=== PATIENT | male | born 1970 | race Caucasian/White ===

== ENCOUNTER 2017-11-06 04:41 | Inpatient (IN) | payer OTHER ==
[~2017-11-06] VITALS: Ht 182.9 cm; Wt 108.6 kg
[2017-11-06] MEDS ORDERED: morphine 4 MG/ML inj SYRINge IV ONE (04:55)
[2017-11-06] MEDS ORDERED: ondansetron/PF 4mg/2ml inj IV ONE (04:55)
[2017-11-06] MEDS ORDERED: normal saline 1000ML IV soln IVB ONE (04:55)
[2017-11-06] MEDS ORDERED: iohexol 300mg/ml 100ml inj. ONE (05:04)
[2017-11-06 05:27] LABS: BASOPHILS % (AUTO) 0.2 % (0-1); EOSINOPHILS # (AUTO) 0.4 X10'3 (0-0.9); EOSINOPHILS % (AUTO) 4.5 % (0-6); HEMATOCRIT 41.4 % (42.0-52.0); HEMOGLOBIN 14.4 g/dl (14.0-17.9); LYMPHOCYTES # (AUTO) 1.4 X10'3 (1.1-4.8); LYMPHOCYTES % (AUTO) 13.7 % (21-51); MEAN CORPUSCULAR HEMOGLOBIN 30.8 PG (27.0-31.0); MEAN CORPUSCULAR HGB CONC 34.8 % (33.0-36.5); MEAN CORPUSCULAR VOLUME 88.3 FL (78-98); MEAN PLATELET VOLUME 8.8 FL (7.4-10.4); MONOCYTES # (AUTO) 0.7 X10'3 (0-0.9); MONOCYTES % (AUTO) 6.6 % (2-12); NEUTROPHILS # (AUTO) 7.5 X10'3 (1.8-7.7); PLATELET COUNT 191 X10'3 (140-440); RED BLOOD COUNT 4.69 X10'6 (4.70-6.10); RED CELL DISTRIBUTION WIDTH 14.6 % (11.5-14.5)
[2017-11-06 05:35] LABS: ALANINE AMINOTRANSFERASE 121 U/L (12-78); ALBUMIN 3.5 G/DL (3.4-5.0); ALKALINE PHOSPHATASE 80 IU/L (46-116); ANION GAP 5 (8-16); ASPARTATE AMINO TRANSFERASE 52 U/L (10-37); BILIRUBIN,TOTAL 1.5 MG/DL (0.1-1.0); BLOOD UREA NITROGEN 16 MG/DL (7-18); BUN/CREATININE RATIO 11.9 (5.4-32.0); CALCIUM 8.5 MG/DL (8.5-10.1); CHLORIDE 102 MMOL/L (99-107); CREATININE 1.34 MG/DL (0.60-1.10); GLUCOSE 131 MG/DL (70-104); LIPASE 78 U/L (73-393); SODIUM 139 MMOL/L (135-145); TOTAL PROTEIN 6.9 G/DL (6.4-8.2); eGFR 57 ML/MIN
[2017-11-06 05:39] LABS: POTASSIUM 2.5 MMOL/L (3.5-5.1)
[2017-11-06] MEDS ORDERED: potassium Cl 20 mEq SR tablet PO STA (05:39)
[2017-11-06] MEDS ORDERED: Potassium Cl inj 20 MEQ in dextrose 5%-water 990 ML IV ONE (06:45)
[2017-11-06] MEDS ORDERED: aspirin 81mg tab.chew PO ONE (08:20)
[2017-11-06] MEDS: potassium 10mEq/100ml NS w/LIDOcaine (10mg/bag) IV SCH ×2 (08:28→09:42)
[2017-11-06] MEDS ORDERED: heparin 10,000 units/1 ML INJ IV PRN (08:35)
[2017-11-06] MEDS ORDERED: heparin 10,000 units/1 ML INJ IV ONE ×2 (08:35)
[2017-11-06] MEDS ORDERED: magnesium 4gm in 100ml NS 100 ML IV PRN (09:00)
[2017-11-06] MEDS ORDERED: potassium Cl 20 mEq SR tablet PO PRN (09:00)
[2017-11-06] MEDS ORDERED: potassium Cl 40MEQ/NS 500ml 500 ML IV PRN (09:00)
[2017-11-06] MEDS ORDERED: mag hydrox/Alum hydrox/simeth 30ml oral suspension PO PRN (09:00)
[2017-11-06] MEDS ORDERED: morphine 4 MG/ML inj SYRINge IV PRN (09:00)
[2017-11-06] MEDS ORDERED: acetaminophen 325mg tablet PO PRN (09:00)
[2017-11-06] MEDS ORDERED: ondansetron/PF 4mg/2ml inj IV PRN (09:00)
[2017-11-06] MEDS ORDERED: magnesium 1gm/100ml D5W IVPB 50 ML IV PRN (09:00)
[2017-11-06] MEDS ORDERED: magnesium Cl slow-release 64mg tablet PO PRN (09:00)
[2017-11-06] MEDS: normal saline 1000ml 1,000 ML IV SCH ×2 (09:47→19:23)
[2017-11-06 10:17] LABS: CLARITY,URINE CLEAR (Clear); GLUCOSE, URINE NEGATIVE (Neg); KETONES,URINE NEGATIVE (Neg); LEUKOCYTE ESTERASE ,URINE NEGATIVE (Neg); NITRITES, URINE NEGATIVE (Neg); OCCULT BLOOD,URINE TRACE-INTACT (Neg); PH,URINE 6.5 (4.8-8.0); PROTEIN,URINE TRACE mg/dl (Neg); UA COLLECTION TYPE CLN CATCH MIDSTREAM; UROBILINOGEN,URINE 0.2 E.U/dL (0.2-1.0)
[2017-11-06 10:18] LABS: COLOR,URINE DARK YELLOW (Yellow)
[2017-11-06 10:25] LABS: BACTERIA,URINE NONE SEEN /HPF (Neg); MUCUS STRANDS NONE SEEN /LPF (Neg); RBC,URINE 0-2 /HPF (0-2); SQUAMOUS EPITHELIAL CELL,UR NONE SEEN /LPF (FEW); WBC,URINE 0-4 /HPF (0-4)
[2017-11-06 10:30] LABS: URINE AMPHETAMINE SCREEN NEGATIVE (Neg); URINE BARBITUATE SCREEN NEGATIVE (Neg); URINE BENZODIAZEPINES SCREEN NEGATIVE (Neg); URINE CANNABINOID SCREEN NEGATIVE (Neg); URINE COCAINE SCREEN NEGATIVE (Neg); URINE METHADONE SCREEN NEGATIVE (Neg); URINE OPIATE SCREEN POSITIVE (Neg); URINE PHENCYCLIDINE SCREEN NEGATIVE (Neg)
[2017-11-06] MEDS ORDERED: POTA20TA19 PO (11:48)
[2017-11-06] MEDS ORDERED: RISP2TAB97 PO (11:48)
[2017-11-06] MEDS ORDERED: LOSA1TAB36 PO (11:48)
[2017-11-06] MEDS ORDERED: TRAZ150T78 PO (11:48)
[2017-11-06] MEDS ORDERED: VENL75CA61 PO (11:48)
[2017-11-06 12:21] VITALS: BP 122/89
[2017-11-06 19:00] VITALS: BP 138/99
[2017-11-06] MEDS: carVEDilol 3.125mg tablet PO SCH (19:26)
[2017-11-06] MEDS: spironolactone 25 MG tablet PO SCH (19:26)
[2017-11-06] MEDS: losartan 50mg tablet PO SCH (19:26)
[2017-11-06] MEDS: docusate sod 100mg capsule PO SCH (19:26)
[2017-11-06] MEDS ORDERED: temazepam 15mg capsule PO PRN (21:00)
[2017-11-06] MEDS: potassium Cl 40MEQ/NS 500ml 500 ML IV PRN (21:04)
[2017-11-07] VITALS: BP 102/75
[2017-11-07] MEDS: potassium Cl 40MEQ/NS 500ml 500 ML IV PRN (01:58)
[2017-11-07] MEDS: normal saline 1000ml 1,000 ML IV SCH (04:57)
[2017-11-07 05:02] LABS: BASOPHILS % (AUTO) 0.1 % (0-1); EOSINOPHILS # (AUTO) 0.8 X10'3 (0-0.9); EOSINOPHILS % (AUTO) 8.1 % (0-6); HEMATOCRIT 40.2 % (42.0-52.0); HEMOGLOBIN 13.6 g/dl (14.0-17.9); LYMPHOCYTES # (AUTO) 1.6 X10'3 (1.1-4.8); LYMPHOCYTES % (AUTO) 15.3 % (21-51); MEAN CORPUSCULAR HEMOGLOBIN 30.4 PG (27.0-31.0); MEAN CORPUSCULAR HGB CONC 33.8 % (33.0-36.5); MEAN CORPUSCULAR VOLUME 89.8 FL (78-98); MEAN PLATELET VOLUME 8.7 FL (7.4-10.4); MONOCYTES # (AUTO) 0.8 X10'3 (0-0.9); NEUTROPHILS % (AUTO) 68.5 % (42-75); PLATELET COUNT 163 X10'3 (140-440); RED BLOOD COUNT 4.47 X10'6 (4.70-6.10); RED CELL DISTRIBUTION WIDTH 15.1 % (11.5-14.5); WHITE BLOOD COUNT 10.2 X10'3 (4.5-11.0)
[2017-11-07 06:03] LABS: ANION GAP 8 (8-16); BLOOD UREA NITROGEN 16 MG/DL (7-18); BUN/CREATININE RATIO 14.2 (5.4-32.0); CALCIUM 7.7 MG/DL (8.5-10.1); CHLORIDE 106 MMOL/L (99-107); CREATININE 1.13 MG/DL (0.60-1.10); GLUCOSE 130 MG/DL (70-104); POTASSIUM 3.8 MMOL/L (3.5-5.1); SODIUM 142 MMOL/L (135-145); TOTAL CARBON DIOXIDE 28.2 MMOL/L (24-32); eGFR 69 ML/MIN
[2017-11-07 07:00] VITALS: BP 147/96
[2017-11-07] MEDS: K and/or MAG REPLACEMENT MC SCH (08:00)
[2017-11-07] MEDS: losartan 50mg tablet PO SCH ×2 (08:24→20:54)
[2017-11-07] MEDS: spironolactone 25 MG tablet PO SCH ×2 (08:24→20:54)
[2017-11-07] MEDS: docusate sod 100mg capsule PO SCH ×2 (08:24→20:54)
[2017-11-07] MEDS: carVEDilol 3.125mg tablet PO SCH ×2 (08:24→20:54)
[2017-11-07] MEDS ORDERED: ipratropium/albuterol 3ml nebule NEB PRN (11:40)
[2017-11-07 12:23] VITALS: BP 123/86
[2017-11-07] MEDS ORDERED: furosemide 10 MG/1 ML 10ml inj IV ONE (13:25)
[2017-11-07] MEDS ORDERED: LORazepam 1 MG tablet PO PRN (16:45)
[2017-11-07] MEDS ORDERED: LORazepam 2 mg/ml vial IV PRN (16:45)
[2017-11-07] MEDS ORDERED: haloperidol lactate 5mg/ml inj IM PRN (16:45)
[2017-11-07 18:40] VITALS: BP 136/97
[2017-11-07] MEDS: furosemide 40mg/4ml inj IV SCH (20:53)
[2017-11-07] MEDS: risperiDONE 2mg tablet PO SCH (20:54)
[2017-11-07] MEDS: traZODone 150mg tablet PO SCH (20:54)
[2017-11-07] MEDS: heparin, porcine 5000 units/ml vial SQ SCH (20:55)
[2017-11-08] VITALS (12 sets, daily range): BP systolic 81–135; BP diastolic 55–99
[2017-11-08 05:19] LABS: BASOPHILS % (AUTO) 0.4 % (0-1); EOSINOPHILS # (AUTO) 0.7 X10'3 (0-0.9); EOSINOPHILS % (AUTO) 7.5 % (0-6); HEMATOCRIT 35.4 % (42.0-52.0); HEMOGLOBIN 12.3 g/dl (14.0-17.9); LYMPHOCYTES # (AUTO) 1.5 X10'3 (1.1-4.8); LYMPHOCYTES % (AUTO) 16.4 % (21-51); MEAN CORPUSCULAR HEMOGLOBIN 30.7 PG (27.0-31.0); MEAN CORPUSCULAR HGB CONC 34.6 % (33.0-36.5); MEAN CORPUSCULAR VOLUME 88.8 FL (78-98); MEAN PLATELET VOLUME 9.3 FL (7.4-10.4); MONOCYTES # (AUTO) 0.7 X10'3 (0-0.9); MONOCYTES % (AUTO) 7.8 % (2-12); NEUTROPHILS # (AUTO) 6.2 X10'3 (1.8-7.7); NEUTROPHILS % (AUTO) 67.9 % (42-75); PLATELET COUNT 154 X10'3 (140-440); RED BLOOD COUNT 3.99 X10'6 (4.70-6.10); RED CELL DISTRIBUTION WIDTH 14.8 % (11.5-14.5); WHITE BLOOD COUNT 9.2 X10'3 (4.5-11.0)
[2017-11-08 05:37] LABS: ALANINE AMINOTRANSFERASE 116 U/L (12-78); ALBUMIN 2.9 G/DL (3.4-5.0); ALBUMIN/GLOBULIN RATIO 0.9 (1.1-1.5); ALKALINE PHOSPHATASE 71 IU/L (46-116); ANION GAP 8 (8-16); ASPARTATE AMINO TRANSFERASE 40 U/L (10-37); BILIRUBIN,TOTAL 1.1 MG/DL (0.1-1.0); BLOOD UREA NITROGEN 18 MG/DL (7-18); BUN/CREATININE RATIO 13.5 (5.4-32.0); CALCIUM 7.7 MG/DL (8.5-10.1); CHLORIDE 104 MMOL/L (99-107); CREATININE 1.33 MG/DL (0.60-1.10); GLUCOSE 116 MG/DL (70-104); MAGNESIUM 1.6 MG/DL (1.5-2.4); SODIUM 143 MMOL/L (135-145); TOTAL CARBON DIOXIDE 30.9 MMOL/L (24-32); TOTAL PROTEIN 6.2 G/DL (6.4-8.2); TROPONIN I 0.07 NG/ML (0.0-0.05); eGFR 57 ML/MIN
[2017-11-08 05:42] LABS: POTASSIUM 2.6 MMOL/L (3.5-5.1)
[2017-11-08] MEDS: potassium Cl 20 mEq SR tablet PO PRN ×3 (05:46→14:16)
[2017-11-08] MEDS: furosemide 40mg/4ml inj IV SCH (08:00)
[2017-11-08] MEDS: K and/or MAG REPLACEMENT MC SCH (08:00)
[2017-11-08] MEDS ORDERED: HYDROchlorothiazide 12.5mg capsule PO SCH (08:00)
[2017-11-08] MEDS ORDERED: losartan 50mg tablet PO SCH (08:00)
[2017-11-08] MEDS: folic acid 1mg tablet PO SCH (08:38)
[2017-11-08] MEDS: multivitamins, therapeutics tablet PO SCH (08:39)
[2017-11-08] MEDS: thiamine 100mg tablet PO SCH (08:39)
[2017-11-08] MEDS: docusate sod 100mg capsule PO SCH ×2 (08:40→19:50)
[2017-11-08] MEDS: carVEDilol 3.125mg tablet PO SCH ×2 (08:40→19:54)
[2017-11-08] MEDS: losartan 50mg tablet PO SCH ×2 (08:40→19:51)
[2017-11-08] MEDS: risperiDONE 2mg tablet PO SCH ×2 (08:41→19:56)
[2017-11-08] MEDS: spironolactone 25 MG tablet PO SCH ×2 (08:41→19:50)
[2017-11-08] MEDS: heparin, porcine 5000 units/ml vial SQ SCH (08:42)
[2017-11-08] MEDS ORDERED: methylPREDNISolone sod succ 125mg/2ml vial IV ONE (12:20)
[2017-11-08] MEDS ORDERED: heparin 10,000 units/1 ML INJ IV ONE (13:20)
[2017-11-08] MEDS ORDERED: amiodarone 150mg/dext, iso-os 100 ML IV ONE (13:20)
[2017-11-08] MEDS ORDERED: magnesium 4gm in 100ml NS 100 ML IV ONE (13:30)
[2017-11-08] MEDS ORDERED: magnesium 1gm/100ml D5W IVPB 100 ML IV PRN (13:30)
[2017-11-08 13:50] LABS: BASOPHILS % (AUTO) 0.3 % (0-1); EOSINOPHILS # (AUTO) 0.7 X10'3 (0-0.9); EOSINOPHILS % (AUTO) 10.5 % (0-6); HEMATOCRIT 35.9 % (42.0-52.0); HEMOGLOBIN 12.5 g/dl (14.0-17.9); LYMPHOCYTES # (AUTO) 1.3 X10'3 (1.1-4.8); LYMPHOCYTES % (AUTO) 19.4 % (21-51); MEAN CORPUSCULAR HGB CONC 34.7 % (33.0-36.5); MEAN CORPUSCULAR VOLUME 89.2 FL (78-98); MEAN PLATELET VOLUME 8.9 FL (7.4-10.4); MONOCYTES # (AUTO) 0.5 X10'3 (0-0.9); MONOCYTES % (AUTO) 7.4 % (2-12); NEUTROPHILS # (AUTO) 4.1 X10'3 (1.8-7.7); NEUTROPHILS % (AUTO) 62.4 % (42-75); PLATELET COUNT 150 X10'3 (140-440); RED BLOOD COUNT 4.02 X10'6 (4.70-6.10); RED CELL DISTRIBUTION WIDTH 14.9 % (11.5-14.5); WHITE BLOOD COUNT 6.6 X10'3 (4.5-11.0)
[2017-11-08 14:01] LABS: INR 1.1 INR; PARTIAL THROMBOPLASTIN TIME 29 SECONDS (22-32); PROTHROMBIN TIME 11.1 SECONDS (9.0-12.0)
[2017-11-08] MEDS ORDERED: ipratropium/albuterol 3ml nebule ONE (14:43)
[2017-11-08] MEDS ORDERED: iohexol 350MG/ML 100ml bottle IV ONE (15:01)
[2017-11-08] MEDS: amiodarone/D5 360MG/200ML BAG 200 ML IV SCH ×2 (15:08→20:43)
[2017-11-08] MEDS: potassium Cl 20 mEq SR tablet PO SCH (17:51)
[2017-11-08] MEDS: ipratropium/albuterol 3ml nebule NEB SCH ×2 (19:37→23:31)
[2017-11-08] MEDS: furosemide 20MG tablet PO SCH (19:52)
[2017-11-08] MEDS ORDERED: methylPREDNISolone sod succ 125mg/2ml vial IV SCH (20:00)
[2017-11-08 21:38] LABS: MAGNESIUM 2.6 MG/DL (1.5-2.4); POTASSIUM 4.1 MMOL/L (3.5-5.1)
[2017-11-08] MEDS: heparin 10,000 units/1 ML INJ IV PRN (22:03)
[2017-11-08] MEDS: traZODone 150mg tablet PO SCH (22:05)
[2017-11-09] VITALS (12 sets, daily range): BP systolic 115–139; BP diastolic 74–103
[2017-11-09] MEDS: amiodarone/D5 360MG/200ML BAG 200 ML IV SCH ×4 (01:26→19:38)
[2017-11-09 04:13] LABS: BASOPHILS % (AUTO) 0.1 % (0-1); EOSINOPHILS % (AUTO) 0.4 % (0-6); HEMATOCRIT 37.9 % (42.0-52.0); HEMOGLOBIN 13.1 g/dl (14.0-17.9); LYMPHOCYTES # (AUTO) 0.7 X10'3 (1.1-4.8); LYMPHOCYTES % (AUTO) 7.7 % (21-51); MEAN CORPUSCULAR HEMOGLOBIN 31.1 PG (27.0-31.0); MEAN CORPUSCULAR HGB CONC 34.5 % (33.0-36.5); MEAN CORPUSCULAR VOLUME 90.3 FL (78-98); MEAN PLATELET VOLUME 9.7 FL (7.4-10.4); MONOCYTES # (AUTO) 0.4 X10'3 (0-0.9); MONOCYTES % (AUTO) 4.1 % (2-12); NEUTROPHILS # (AUTO) 7.7 X10'3 (1.8-7.7); NEUTROPHILS % (AUTO) 87.7 % (42-75); PLATELET COUNT 163 X10'3 (140-440); RED BLOOD COUNT 4.19 X10'6 (4.70-6.10); WHITE BLOOD COUNT 8.8 X10'3 (4.5-11.0)
[2017-11-09 04:27] LABS: ALANINE AMINOTRANSFERASE 89 U/L (12-78); ALBUMIN 2.9 G/DL (3.4-5.0); ALBUMIN/GLOBULIN RATIO 0.7 (1.1-1.5); ALKALINE PHOSPHATASE 77 IU/L (46-116); ANION GAP 8 (8-16); ASPARTATE AMINO TRANSFERASE 22 U/L (10-37); BILIRUBIN,TOTAL 0.5 MG/DL (0.1-1.0); BLOOD UREA NITROGEN 26 MG/DL (7-18); BUN/CREATININE RATIO 18.8 (5.4-32.0); CALCIUM 8.8 MG/DL (8.5-10.1); CHLORIDE 104 MMOL/L (99-107); CREATININE 1.38 MG/DL (0.60-1.10); GLUCOSE 162 MG/DL (70-104); MAGNESIUM 2.4 MG/DL (1.5-2.4); POTASSIUM 3.9 MMOL/L (3.5-5.1); SODIUM 140 MMOL/L (135-145); TOTAL CARBON DIOXIDE 28.4 MMOL/L (24-32); eGFR 55 ML/MIN
[2017-11-09] MEDS: heparin 10,000 units/1 ML INJ IV PRN ×3 (04:46→19:55)
[2017-11-09] MEDS: docusate sod 100mg capsule PO SCH ×2 (08:00→19:53)
[2017-11-09] MEDS: K and/or MAG REPLACEMENT MC SCH (08:00)
[2017-11-09] MEDS: multivitamins, therapeutics tablet PO SCH (08:10)
[2017-11-09] MEDS: spironolactone 25 MG tablet PO SCH ×2 (08:11→19:53)
[2017-11-09] MEDS: losartan 50mg tablet PO SCH ×2 (08:11→19:54)
[2017-11-09] MEDS: thiamine 100mg tablet PO SCH (08:11)
[2017-11-09] MEDS: folic acid 1mg tablet PO SCH (08:11)
[2017-11-09] MEDS: furosemide 20MG tablet PO SCH ×2 (08:11→19:54)
[2017-11-09] MEDS: potassium Cl 20 mEq SR tablet PO SCH ×2 (08:12→17:27)
[2017-11-09] MEDS: carVEDilol 3.125mg tablet PO SCH ×2 (08:12→19:54)
[2017-11-09] MEDS: ipratropium/albuterol 3ml nebule NEB SCH ×4 (08:14→19:58)
[2017-11-09] MEDS: risperiDONE 2mg tablet PO SCH ×2 (09:00→19:54)
[2017-11-09] MEDS ORDERED: amiodarone 200mg tablet PO ONE (14:40)
[2017-11-09] MEDS ORDERED: furosemide 40mg/4ml inj IV ONE (17:20)
[2017-11-09] MEDS ORDERED: amiodarone 200mg tablet PO SCH (20:00)
[2017-11-09] MEDS: traZODone 150mg tablet PO SCH (21:10)
== END 2017-11-09 23:00 | disposition short-term general hospital (02) | DRG 280 ==
LOC: ER 04:42 → ED HOLD 08:57 → SUR 3N 11:28 → PCU 3S 11-08 14:38
PROVIDERS: ADMIT Internal Medicine; ATTEND Family Medicine
PROC: BW211ZZ Computerized Tomography (CT Scan) of Abdomen and Pelvis using Low Osmolar Contrast (ICD-10-PCS; principal; 2017-11-06)
DX: I21.A1 Myocardial infarction type 2 (principal); I50.23 Acute on chronic systolic (congestive) heart failure; I47.2 Ventricular tachycardia; I42.6 Alcoholic cardiomyopathy; K59.00 Constipation, unspecified; E87.6 Hypokalemia; M54.5 Low back pain; F10.20 Alcohol dependence, uncomplicated; F41.8 Other specified anxiety disorders; I11.0 Hypertensive heart disease with heart failure; I44.7 Left bundle-branch block, unspecified; Z79.899 Other long term (current) drug therapy
CPT/HCPCS: 36415; 71046; 74177; 80048; 80053; 80305; 81001; 83690; 83735; 84132; 84484; 85025; 85610; 85730; 87070; 93005; 93306; 94640; 94760; 96365; 96366; 96375; 99285; A6258; J0282; J1644; J1940; J2270; J2405; J2930; J3475; J3480; J7030; J7070; Q9967

== ENCOUNTER 2018-01-28 09:20 | Inpatient (IN) | payer OTHER ==
[~2018-01-28] VITALS: Ht 182.9 cm; Wt 100.1 kg
[~2018-01-28 09:20] MED LIST: LOSA1TAB36 PO; POTA20TA19 PO; RISP2TAB97 PO; TRAZ150T78 PO; VENL75CA61 PO
[2018-01-28] MEDS ORDERED: aspirin 81mg tab.chew PO ONE (09:25)
[2018-01-28] MEDS ORDERED: ipratropium/albuterol 3ml nebule NEB ONE (09:35)
[2018-01-28] MEDS ORDERED: ondansetron/PF 4mg/2ml inj IV ONE (10:00)
[2018-01-28 10:25] LABS: BASOPHILS # (AUTO) 0.1 X10'3 (0-0.2); BASOPHILS % (AUTO) 0.5 % (0-1); EOSINOPHILS # (AUTO) 1.2 X10'3 (0-0.9); EOSINOPHILS % (AUTO) 11.8 % (0-6); HEMATOCRIT 36.5 % (42.0-52.0); HEMOGLOBIN 12.7 g/dl (14.0-17.9); LYMPHOCYTES # (AUTO) 1.9 X10'3 (1.1-4.8); LYMPHOCYTES % (AUTO) 17.8 % (21-51); MEAN CORPUSCULAR HEMOGLOBIN 30.3 PG (27.0-31.0); MEAN CORPUSCULAR HGB CONC 34.8 % (33.0-36.5); MEAN CORPUSCULAR VOLUME 87.1 FL (78-98); MEAN PLATELET VOLUME 8.5 FL (7.4-10.4); MONOCYTES # (AUTO) 0.7 X10'3 (0-0.9); MONOCYTES % (AUTO) 6.9 % (2-12); NEUTROPHILS # (AUTO) 6.6 X10'3 (1.8-7.7); PLATELET COUNT 248 X10'3 (140-440); RED BLOOD COUNT 4.19 X10'6 (4.70-6.10); WHITE BLOOD COUNT 10.5 X10'3 (4.5-11.0)
[2018-01-28 10:30] LABS: D-DIMER 1.54 MG/L FEU (0-0.50)
[2018-01-28] MEDS ORDERED: methylPREDNISolone sod succ 125mg/2ml vial IV ONE (10:30)
[2018-01-28 10:34] LABS: ALANINE AMINOTRANSFERASE 28 U/L (12-78); ALBUMIN 3.7 G/DL (3.4-5.0); ALKALINE PHOSPHATASE 49 IU/L (46-116); ANION GAP 9 (8-16); ASPARTATE AMINO TRANSFERASE 10 U/L (10-37); BILIRUBIN,TOTAL 0.4 MG/DL (0.1-1.0); BLOOD UREA NITROGEN 88 MG/DL (7-18); BUN/CREATININE RATIO 35.9 (5.4-32.0); CALCIUM 9.1 MG/DL (8.5-10.1); CHLORIDE 100 MMOL/L (99-107); CREATININE 2.45 MG/DL (0.60-1.10); GLUCOSE 124 MG/DL (70-104); POTASSIUM 5.4 MMOL/L (3.5-5.1); SODIUM 137 MMOL/L (135-145); TOTAL PROTEIN 7.5 G/DL (6.4-8.2); eGFR 28 ML/MIN
[2018-01-28 10:43] LABS: ETHANOL < 0.010 GM/DL (0.0-0.010); MAGNESIUM 2.6 MG/DL (1.5-2.4)
[2018-01-28] MEDS ORDERED: normal saline 1000ml 1,000 ML IV ONE (10:50)
[2018-01-28 10:52] LABS: URINE AMPHETAMINE SCREEN NEGATIVE (Neg); URINE BARBITUATE SCREEN NEGATIVE (Neg); URINE BENZODIAZEPINES SCREEN NEGATIVE (Neg); URINE CANNABINOID SCREEN NEGATIVE (Neg); URINE COCAINE SCREEN NEGATIVE (Neg); URINE METHADONE SCREEN NEGATIVE (Neg); URINE OPIATE SCREEN NEGATIVE (Neg); URINE PHENCYCLIDINE SCREEN NEGATIVE (Neg)
[2018-01-28] MEDS ORDERED: FURO80TA87 PO (11:11)
[2018-01-28] MEDS ORDERED: LISI40TA4 PO (11:11)
[2018-01-28] MEDS ORDERED: enoxaparin 100mg/ml syringe SUBCUT ONE (13:40)
[2018-01-28] MEDS ORDERED: heparin 10,000 units/1 ML INJ IV PRN (13:45)
[2018-01-28] MEDS ORDERED: heparin 10,000 units/1 ML INJ IV ONE (13:45)
[2018-01-28] MEDS ORDERED: SPIR50TA5 PO (14:29)
[2018-01-28] MEDS ORDERED: MELA3TAB PO (14:29)
[2018-01-28] MEDS ORDERED: CARV-50 PO (14:29)
[2018-01-28] MEDS ORDERED: RISP0.5T3 PO (14:29)
[2018-01-28] MEDS ORDERED: magnesium 4gm in 100ml NS 100 ML IV PRN (14:35)
[2018-01-28] MEDS ORDERED: docusate sod 100mg capsule PO PRN (14:35)
[2018-01-28] MEDS ORDERED: magnesium 1gm/100ml D5W IVPB 100 ML IV PRN (14:35)
[2018-01-28] MEDS ORDERED: ondansetron/PF 4mg/2ml inj IV PRN (14:35)
[2018-01-28] MEDS ORDERED: potassium Cl 20 mEq SR tablet PO PRN ×2 (14:35)
[2018-01-28] MEDS ORDERED: potassium Cl 40MEQ/NS 500ml 500 ML IV PRN ×2 (14:35)
[2018-01-28] MEDS ORDERED: acetaminophen 325mg tablet PO PRN (14:35)
[2018-01-28 15:31] LABS: PROTHROMBIN TIME 10.5 SECONDS (9.0-12.0)
[2018-01-28 15:35] VITALS: BP 119/76
[2018-01-28] MEDS: normal saline 1000ml 1,000 ML IV SCH (16:02)
[2018-01-28 19:00] VITALS: BP 126/60
[2018-01-28] MEDS: ipratropium/albuterol 3ml nebule NEB PRN (19:56)
[2018-01-28] MEDS: traZODone 150mg tablet PO SCH (21:15)
[2018-01-28 23:00] VITALS: BP 130/64
[2018-01-29] VITALS (7 sets, daily range): BP systolic 97–129; BP diastolic 64–83
[2018-01-29] MEDS: normal saline 1000ml 1,000 ML IV SCH ×2 (00:02→10:31)
[2018-01-29 02:51] LABS: BASOPHILS # (AUTO) 0.1 X10'3 (0-0.2); EOSINOPHILS % (AUTO) 0.1 % (0-6); HEMATOCRIT 31.4 % (42.0-52.0); LYMPHOCYTES # (AUTO) 0.8 X10'3 (1.1-4.8); LYMPHOCYTES % (AUTO) 6.5 % (21-51); MEAN CORPUSCULAR HEMOGLOBIN 30.8 PG (27.0-31.0); MEAN PLATELET VOLUME 8.1 FL (7.4-10.4); MONOCYTES # (AUTO) 0.2 X10'3 (0-0.9); MONOCYTES % (AUTO) 1.3 % (2-12); NEUTROPHILS # (AUTO) 11.4 X10'3 (1.8-7.7); NEUTROPHILS % (AUTO) 91.1 % (42-75); PLATELET COUNT 223 X10'3 (140-440); RED BLOOD COUNT 3.57 X10'6 (4.70-6.10); WHITE BLOOD COUNT 12.5 X10'3 (4.5-11.0)
[2018-01-29 03:18] LABS: ALANINE AMINOTRANSFERASE 24 U/L (12-78); ALBUMIN 3.1 G/DL (3.4-5.0); ALBUMIN/GLOBULIN RATIO 0.9 (1.1-1.5); ALKALINE PHOSPHATASE 41 IU/L (46-116); ANION GAP 10 (8-16); ASPARTATE AMINO TRANSFERASE 12 U/L (10-37); BILIRUBIN,TOTAL 0.4 MG/DL (0.1-1.0); BLOOD UREA NITROGEN 72 MG/DL (7-18); CALCIUM 8.4 MG/DL (8.5-10.1); CHLORIDE 104 MMOL/L (99-107); CHOL/HDL RATIO 6.3 (0.00-4.99); CHOLESTEROL 234 MG/DL (0-200); GLUCOSE 149 MG/DL (70-104); HDL CHOLESTEROL 37 MG/DL (35-60); LDL CHOLESTEROL 163 MG/DL (50-100); MAGNESIUM 2.2 MG/DL (1.5-2.4); POTASSIUM 4.9 MMOL/L (3.5-5.1); SODIUM 137 MMOL/L (135-145); TOTAL CARBON DIOXIDE 22.9 MMOL/L (24-32); TOTAL PROTEIN 6.5 G/DL (6.4-8.2); TRIGLYCERIDES 144 MG/DL (20-135); eGFR 36 ML/MIN
[2018-01-29] MEDS: K and/or MAG REPLACEMENT MC SCH (08:00)
[2018-01-29] MEDS: carVEDilol 12.5mg tablet PO SCH ×2 (08:00→20:37)
[2018-01-29] MEDS: risperiDONE 0.5mg tablet PO SCH ×2 (08:01→20:38)
[2018-01-29] MEDS: venlafaxine XR 75mg capsule (Q24H) PO SCH (08:01)
[2018-01-29 16:25] LABS: ANION GAP 9 (8-16); BLOOD UREA NITROGEN 64 MG/DL (7-18); BUN/CREATININE RATIO 34.8 (5.4-32.0); CALCIUM 8.5 MG/DL (8.5-10.1); CHLORIDE 105 MMOL/L (99-107); CREATININE 1.84 MG/DL (0.60-1.10); GLUCOSE 127 MG/DL (70-104); POTASSIUM 4.1 MMOL/L (3.5-5.1); SODIUM 139 MMOL/L (135-145); TOTAL CARBON DIOXIDE 24.7 MMOL/L (24-32); eGFR 39 ML/MIN
[2018-01-29] MEDS ORDERED: normal saline 1000ml 1,000 ML IV SCH (18:20)
[2018-01-29] MEDS: traZODone 150mg tablet PO SCH (20:37)
[2018-01-29] MEDS: heparin, porcine 5000 units/ml vial SQ SCH (20:39)
[2018-01-29] MEDS: ipratropium/albuterol 3ml nebule NEB PRN (21:06)
[2018-01-30 03:00] VITALS: BP 131/74
[2018-01-30 05:46] LABS: ALANINE AMINOTRANSFERASE 19 U/L (12-78); ALBUMIN/GLOBULIN RATIO 0.9 (1.1-1.5); ALKALINE PHOSPHATASE 37 IU/L (46-116); ANION GAP 8 (8-16); ASPARTATE AMINO TRANSFERASE 10 U/L (10-37); BILIRUBIN,TOTAL 0.4 MG/DL (0.1-1.0); BLOOD UREA NITROGEN 50 MG/DL (7-18); BUN/CREATININE RATIO 28.4 (5.4-32.0); CALCIUM 8.5 MG/DL (8.5-10.1); CHLORIDE 109 MMOL/L (99-107); CREATININE 1.76 MG/DL (0.60-1.10); GLUCOSE 100 MG/DL (70-104); MAGNESIUM 2.3 MG/DL (1.5-2.4); POTASSIUM 4.6 MMOL/L (3.5-5.1); SODIUM 142 MMOL/L (135-145); TOTAL CARBON DIOXIDE 25.4 MMOL/L (24-32); TOTAL PROTEIN 6.2 G/DL (6.4-8.2); eGFR 41 ML/MIN
[2018-01-30 05:55] LABS: BASOPHILS # (AUTO) 0.1 X10'3 (0-0.2); BASOPHILS % (AUTO) 0.6 % (0-1); EOSINOPHILS # (AUTO) 0.7 X10'3 (0-0.9); EOSINOPHILS % (AUTO) 7.2 % (0-6); HEMATOCRIT 31.1 % (42.0-52.0); HEMOGLOBIN 11.2 g/dl (14.0-17.9); LYMPHOCYTES # (AUTO) 2.3 X10'3 (1.1-4.8); LYMPHOCYTES % (AUTO) 24.2 % (21-51); MEAN CORPUSCULAR HEMOGLOBIN 31.4 PG (27.0-31.0); MEAN CORPUSCULAR VOLUME 87.2 FL (78-98); MEAN PLATELET VOLUME 7.9 FL (7.4-10.4); MONOCYTES # (AUTO) 0.6 X10'3 (0-0.9); MONOCYTES % (AUTO) 6.7 % (2-12); NEUTROPHILS # (AUTO) 5.6 X10'3 (1.8-7.7); NEUTROPHILS % (AUTO) 61.3 % (42-75); PLATELET COUNT 210 X10'3 (140-440); RED BLOOD COUNT 3.57 X10'6 (4.70-6.10); RED CELL DISTRIBUTION WIDTH 12.4 % (11.5-14.5); WHITE BLOOD COUNT 9.3 X10'3 (4.5-11.0)
[2018-01-30] MEDS: carVEDilol 12.5mg tablet PO SCH (07:39)
[2018-01-30] MEDS: heparin, porcine 5000 units/ml vial SQ SCH (07:39)
[2018-01-30] MEDS: venlafaxine XR 75mg capsule (Q24H) PO SCH (07:39)
[2018-01-30] MEDS: risperiDONE 0.5mg tablet PO SCH (07:39)
[2018-01-30 08:00] VITALS: BP_SYST 117; BP_SYST 124; BP_SYST 140; BP_DIAS 80; BP_DIAS 82; BP_DIAS 90
[2018-01-30] MEDS: K and/or MAG REPLACEMENT MC SCH (08:00)
[2018-01-30 09:56] LABS: MEAN CORPUSCULAR HGB CONC 35.3 % (33.0-36.5)
[2018-01-30] MEDS ORDERED: ATOR20TA66 PO (10:44)
[2018-01-30 11:00] VITALS: BP 122/82
== END 2018-01-30 12:50 | disposition home or self-care (01) | DRG 682 ==
LOC: ER 09:20 → PCU 3S 14:31
PROVIDERS: ADMIT Family Medicine; ATTEND Internal Medicine
DX: N17.9 Acute kidney failure, unspecified (principal); J96.01 Acute respiratory failure with hypoxia; I50.23 Acute on chronic systolic (congestive) heart failure; I13.0 Hypertensive heart and chronic kidney disease with heart failure and stage 1 through stage 4 chronic kidney disease, or unspecified chronic kidney disease; I42.9 Cardiomyopathy, unspecified; F32.9 Major depressive disorder, single episode, unspecified; F43.10 Post-traumatic stress disorder, unspecified; E78.5 Hyperlipidemia, unspecified; N18.3 Chronic kidney disease, stage 3 (moderate); E87.5 Hyperkalemia
CPT/HCPCS: 36415; 71045; 78582; 80048; 80053; 80061; 80305; 80320; 83735; 83880; 84439; 84443; 84484; 85025; 85379; 85610; 85730; 87070; 93005; 93306; 94640; 94667; 94668; 94760; 96361; 96374; 97116; 97161; 97530; 99285; A9539; A9540; J1644; J2930; J7030

== ENCOUNTER 2018-04-01 13:13 | Inpatient (IN) | payer OTHER ==
[~2018-04-01] VITALS: Ht 182.9 cm; Wt 102.4 kg
[~2018-04-01 13:13] MED LIST changes: +ATOR20TA66 PO; +CARV-50 PO; +FURO80TA87 PO; +LISI40TA4 PO; -LOSA1TAB36 PO; +MELA3TAB PO; -POTA20TA19 PO; +RISP0.5T3 PO; -RISP2TAB97 PO
[2018-04-01] MEDS ORDERED: ipratropium/albuterol 3ml nebule NEB ONE (13:35)
[2018-04-01 13:48] LABS: BASOPHILS # (AUTO) 0.1 X10'3 (0-0.2); BASOPHILS % (AUTO) 0.4 % (0-1); EOSINOPHILS # (AUTO) 1.3 X10'3 (0-0.9); EOSINOPHILS % (AUTO) 10.3 % (0-6); HEMATOCRIT 47.9 % (42.0-52.0); HEMOGLOBIN 15.5 g/dl (14.0-17.9); LYMPHOCYTES # (AUTO) 2.6 X10'3 (1.1-4.8); LYMPHOCYTES % (AUTO) 20.3 % (21-51); MEAN CORPUSCULAR HEMOGLOBIN 29.8 PG (27.0-31.0); MEAN CORPUSCULAR HGB CONC 32.3 % (33.0-36.5); MEAN CORPUSCULAR VOLUME 92.2 FL (78-98); MEAN PLATELET VOLUME 8.9 FL (7.4-10.4); MONOCYTES # (AUTO) 0.9 X10'3 (0-0.9); MONOCYTES % (AUTO) 7.5 % (2-12); NEUTROPHILS # (AUTO) 7.8 X10'3 (1.8-7.7); NEUTROPHILS % (AUTO) 61.5 % (42-75); PLATELET COUNT 304 X10'3 (140-440); RED BLOOD COUNT 5.19 X10'6 (4.70-6.10); RED CELL DISTRIBUTION WIDTH 13.4 % (11.5-14.5); WHITE BLOOD COUNT 12.6 X10'3 (4.5-11.0)
[2018-04-01 14:02] LABS: ALANINE AMINOTRANSFERASE 24 U/L (12-78); ALBUMIN 3.9 G/DL (3.4-5.0); ALBUMIN/GLOBULIN RATIO 1.1 (1.1-1.5); ALKALINE PHOSPHATASE 50 IU/L (46-116); BILIRUBIN,TOTAL 0.6 MG/DL (0.1-1.0); BLOOD UREA NITROGEN 14 MG/DL (7-18); BUN/CREATININE RATIO 15.2 (5.4-32.0); CALCIUM 9.1 MG/DL (8.5-10.1); CHLORIDE 94 MMOL/L (99-107); CREATININE 0.92 MG/DL (0.60-1.10); GLUCOSE 151 MG/DL (70-104); SODIUM 142 MMOL/L (135-145); TOTAL PROTEIN 7.6 G/DL (6.4-8.2); eGFR 87 ML/MIN
[2018-04-01 14:12] LABS: INR 1.1 INR; PARTIAL THROMBOPLASTIN TIME 29 SECONDS (22-32); PROTHROMBIN TIME 11.3 SECONDS (9.0-12.0)
[2018-04-01] MEDS ORDERED: furosemide 10 MG/1 ML 10ml inj IV ONE (14:20)
[2018-04-01] MEDS ORDERED: nitroGLYCERIN 0.4mg SUBLingual tab SL PRN (14:20)
[2018-04-01 14:25] LABS: ANION GAP -1 (8-16); ASPARTATE AMINO TRANSFERASE 22 U/L (10-37); POTASSIUM 4.1 MMOL/L (3.5-5.1)
[2018-04-01 14:27] LABS: TOTAL CARBON DIOXIDE 48.5 MMOL/L (24-32)
[2018-04-01] MEDS ORDERED: nitroGLYCERIN-Tridil 50MG/D5W 250 ML IV PRN ×2 (15:20→23:15)
[2018-04-01] MEDS: nitroGLYCERIN 0.4mg SUBLingual tab SL SCH ×2 (15:31→15:41)
[2018-04-01 15:38] LABS: CLARITY,URINE CLEAR (Clear); COLOR,URINE YELLOW (Yellow); GLUCOSE, URINE NEGATIVE (Neg); KETONES,URINE NEGATIVE (Neg); LEUKOCYTE ESTERASE ,URINE NEGATIVE (Neg); NITRITES, URINE NEGATIVE (Neg); OCCULT BLOOD,URINE TRACE-INTACT (Neg); PH,URINE 6.5 (4.8-8.0); PROTEIN,URINE TRACE mg/dl (Neg); UA COLLECTION TYPE CLN CATCH MIDSTREAM; UROBILINOGEN,URINE 0.2 E.U/dL (0.2-1.0)
[2018-04-01 15:44] LABS: BACTERIA,URINE NONE SEEN /HPF (Neg); MUCUS STRANDS NONE SEEN /LPF (Neg); RBC,URINE 0-2 /HPF (0-2); SQUAMOUS EPITHELIAL CELL,UR NONE SEEN /LPF (FEW); WBC,URINE NONE SEEN /HPF (0-4)
[2018-04-01 17:16] LABS: ABG BASE EXCESS 21.6 mmol/L (-2.0-3.0); ABG HCO3 56.8 mmol/L (22.0-26.0); ABG OXYGEN SATURATION 95.8 % (95-98); ABG PCO2 (T) 130.6 mmHg (35.0-48.0); ABG PH (T) 7.256 (7.350-7.450); ABG PO2 (T) 89.9 mmHg (83-108); ALLEN'S TEST Positive; FCOHb 1.5 % (0.5-1.5); FLOW 4 L/min; FMetHb 0.2 % (0.3-1.12); FO2Hb 94.2 % (94-100); TOTAL HEMOGLOBIN 15.7 G/dl (14.0-18.0)
[2018-04-01] MEDS ORDERED: albuterol 2.5 MG/3 ML nebule CONTNEB PRN (17:35)
[2018-04-01] MEDS ORDERED: POTA10TA19 PO (19:00)
[2018-04-01] MEDS ORDERED: SPIR25TA5 PO (19:02)
[2018-04-01] MEDS ORDERED: ATOR20TA PO (19:03)
[2018-04-01] MEDS ORDERED: TRAZ-218 PO (19:05)
[2018-04-01] MEDS ORDERED: acetaminophen 325mg tablet PO ONE (19:45)
[2018-04-01] MEDS ORDERED: temazepam 15mg capsule PO PRN (21:00)
[2018-04-01] MEDS ORDERED: ondansetron/PF 4mg/2ml inj IV PRN (22:10)
[2018-04-01] MEDS ORDERED: mag hydrox/Alum hydrox/simeth 30ml oral suspension PO PRN (22:10)
[2018-04-01] MEDS ORDERED: diphenhydrAMINE 25mg capsule PO PRN (22:10)
[2018-04-01] MEDS ORDERED: magnesium hydroxide 30ml (MOM) UD suspension PO PRN (22:10)
[2018-04-01] MEDS ORDERED: acetaminophen 325mg tablet PO PRN (22:10)
[2018-04-01] MEDS ORDERED: HYDROcodone/acetaminophen 10/325mg tab PO PRN (22:10)
[2018-04-01] MEDS ORDERED: acetaminophen 650mg rectal suppository RC PRN (22:10)
[2018-04-01] MEDS ORDERED: metoclopramide 5 mg/ml inj IV PRN (22:10)
[2018-04-01] MEDS ORDERED: diphenhydrAMINE 50 mg/ml inj IV PRN (22:10)
[2018-04-01] MEDS ORDERED: HYDROmorphone 1 mg/ml syringe IV PRN (22:10)
[2018-04-01] MEDS ORDERED: bisacodyl 10mg suppository rectal RC PRN (22:10)
[2018-04-01] MEDS ORDERED: morphine 2 MG/ML inj. syringe IV PRN (22:10)
[2018-04-01 22:31] LABS: ABG BASE EXCESS 17.3 mmol/L (-2.0-3.0); ABG HCO3 49.5 mmol/L (22.0-26.0); ABG OXYGEN SATURATION 95.9 % (95-98); ABG PCO2 (T) 100.1 mmHg (35.0-48.0); ABG PH (T) 7.313 (7.350-7.450); ABG PO2 (T) 83.6 mmHg (83-108); ALLEN'S TEST Positive; FCOHb 1.4 % (0.5-1.5); FMetHb 0.2 % (0.3-1.12); FO2Hb 94.4 % (94-100); PATIENT TEMPERATURE 37.2; RESPIRATORY RATE 20 b/min; RESPIRATORY RATE (OBSERVED) 28 b/min; TOTAL HEMOGLOBIN 15.6 G/dl (14.0-18.0)
[2018-04-01] MEDS: atorvastatin 20mg tablet PO SCH (22:40)
[2018-04-01 22:47] LABS: MAGNESIUM 1.8 MG/DL (1.5-2.4); PHOSPHORUS 4.3 MG/DL (2.3-4.5)
[2018-04-01 22:57] LABS: HEMOGLOBIN A1C 5.3 % (4.5-6.2)
[2018-04-01 23:05] VITALS: BP 167/107
[2018-04-01 23:05] LABS: D-DIMER 0.24 MG/L FEU (0-0.50)
[2018-04-01 23:20] VITALS: BP 152/98
[2018-04-01] MEDS: normal saline 1000ml 1,000 ML IV SCH (23:20)
[2018-04-01 23:35] VITALS: BP 142/100
[2018-04-01 23:50] VITALS: BP 169/109
[2018-04-02] VITALS (7 sets, daily range): BP systolic 111–162; BP diastolic 81–118
[2018-04-02 02:41] LABS: BASOPHILS % (AUTO) 0.2 % (0-1); EOSINOPHILS # (AUTO) 0.4 X10'3 (0-0.9); EOSINOPHILS % (AUTO) 3.6 % (0-6); HEMATOCRIT 44.3 % (42.0-52.0); HEMOGLOBIN 14.4 g/dl (14.0-17.9); LYMPHOCYTES # (AUTO) 1.5 X10'3 (1.1-4.8); LYMPHOCYTES % (AUTO) 14.6 % (21-51); MEAN CORPUSCULAR HEMOGLOBIN 29.7 PG (27.0-31.0); MEAN CORPUSCULAR HGB CONC 32.4 % (33.0-36.5); MEAN CORPUSCULAR VOLUME 91.9 FL (78-98); MEAN PLATELET VOLUME 8.6 FL (7.4-10.4); MONOCYTES # (AUTO) 0.9 X10'3 (0-0.9); MONOCYTES % (AUTO) 8.8 % (2-12); NEUTROPHILS # (AUTO) 7.3 X10'3 (1.8-7.7); NEUTROPHILS % (AUTO) 72.8 % (42-75); PLATELET COUNT 237 X10'3 (140-440); RED BLOOD COUNT 4.82 X10'6 (4.70-6.10); RED CELL DISTRIBUTION WIDTH 13.2 % (11.5-14.5)
[2018-04-02 02:57] LABS: ALANINE AMINOTRANSFERASE 21 U/L (12-78); ALBUMIN 3.6 G/DL (3.4-5.0); ALBUMIN/GLOBULIN RATIO 1.1 (1.1-1.5); ALKALINE PHOSPHATASE 45 IU/L (46-116); ANION GAP 2 (8-16); ASPARTATE AMINO TRANSFERASE 11 U/L (10-37); BILIRUBIN,TOTAL 0.4 MG/DL (0.1-1.0); BLOOD UREA NITROGEN 18 MG/DL (7-18); BUN/CREATININE RATIO 17.1 (5.4-32.0); CALCIUM 9.1 MG/DL (8.5-10.1); CHLORIDE 97 MMOL/L (99-107); CHOL/HDL RATIO 3.3 (0.00-4.99); CHOLESTEROL 118 MG/DL (0-200); CREATININE 1.05 MG/DL (0.60-1.10); GLUCOSE 114 MG/DL (70-104); HDL CHOLESTEROL 36 MG/DL (35-60); LDL CHOLESTEROL 62 MG/DL (50-100); POTASSIUM 3.2 MMOL/L (3.5-5.1); SODIUM 144 MMOL/L (135-145); TOTAL PROTEIN 6.8 G/DL (6.4-8.2); TRIGLYCERIDES 128 MG/DL (20-135); eGFR 75 ML/MIN
[2018-04-02 03:00] LABS: TOTAL CARBON DIOXIDE 44.9 MMOL/L (24-32)
[2018-04-02] MEDS ORDERED: hydrALAZINE 20mg/ml inj. IV PRN ×2 (05:25→15:55)
[2018-04-02] MEDS: atorvastatin 20mg tablet PO SCH ×2 (07:08→08:00)
[2018-04-02] MEDS: lisinopril 20mg tablet PO SCH (07:09)
[2018-04-02] MEDS: docusate sod 100mg capsule PO SCH ×2 (07:09→20:41)
[2018-04-02] MEDS: venlafaxine XR 75mg capsule (Q24H) PO SCH (07:09)
[2018-04-02] MEDS: risperiDONE 0.5mg tablet PO SCH ×2 (07:10→20:41)
[2018-04-02] MEDS: potassium Cl 20 mEq SR tablet PO PRN (07:10)
[2018-04-02] MEDS: enoxaparin 40mg/0.4ml syringe SQ SCH (07:11)
[2018-04-02] MEDS: furosemide 40mg/4ml inj IV SCH ×2 (07:11→20:41)
[2018-04-02] MEDS ORDERED: carVEDilol 12.5mg tablet PO SCH (08:00)
[2018-04-02] MEDS ORDERED: non-formulary drug (Lisinopril* 0.5 TAB) PO SCH (08:00)
[2018-04-02 08:25] LABS: ABG BASE EXCESS 19.1 mmol/L (-2.0-3.0); ABG HCO3 51.2 mmol/L (22.0-26.0); ABG OXYGEN SATURATION 98.9 % (95-98); ABG PCO2 (T) 97.9 mmHg (35.0-48.0); ABG PH (T) 7.336 (7.350-7.450); ABG PO2 (T) 136.1 mmHg (83-108); ALLEN'S TEST Positive; FCOHb 1.1 % (0.5-1.5); FMetHb 0.2 % (0.3-1.12); FO2Hb 97.6 % (94-100); MINUTE VOLUME 10 L/min; PEEP 5 cm H2O; RESPIRATORY RATE 20 b/min; RESPIRATORY RATE (OBSERVED) 20 b/min; TIDAL VOLUME 500 mL; TOTAL HEMOGLOBIN 15.5 G/dl (14.0-18.0)
[2018-04-02] MEDS: aspirin 81mg tab.chew PO SCH (08:45)
[2018-04-02] MEDS: traZODone 50mg tablet PO SCH (20:41)
[2018-04-02] MEDS: Melatonin 3mg tablet PO SCH (20:41)
[2018-04-02] MEDS: carVEDilol 12.5mg tablet PO SCH (20:42)
[2018-04-03] MEDS: potassium Cl 20 mEq SR tablet PO PRN ×3 (00:17→17:18)
[2018-04-03 03:00] VITALS: BP 117/78
[2018-04-03 05:56] LABS: ABG HCO3 53.1 mmol/L (22.0-26.0); ABG OXYGEN SATURATION 95.6 % (95-98); ABG PCO2 (T) 98.6 mmHg (35.0-48.0); ABG PH (T) 7.347 (7.350-7.450); ABG PO2 (T) 76.5 mmHg (83-108); FCOHb 0.8 % (0.5-1.5); FMetHb 0.2 % (0.3-1.12); FO2Hb 94.6 % (94-100); MINUTE VOLUME 11 L/min; PATIENT TEMPERATURE 36.4; RESPIRATORY RATE 20 b/min; RESPIRATORY RATE (OBSERVED) 20 b/min; TOTAL HEMOGLOBIN 14.9 G/dl (14.0-18.0)
[2018-04-03 06:46] LABS: BASOPHILS % (AUTO) 0.4 % (0-1); EOSINOPHILS # (AUTO) 0.6 X10'3 (0-0.9); EOSINOPHILS % (AUTO) 6.9 % (0-6); HEMATOCRIT 42.6 % (42.0-52.0); HEMOGLOBIN 13.7 g/dl (14.0-17.9); LYMPHOCYTES # (AUTO) 1.6 X10'3 (1.1-4.8); LYMPHOCYTES % (AUTO) 19.2 % (21-51); MEAN CORPUSCULAR HEMOGLOBIN 29.8 PG (27.0-31.0); MEAN CORPUSCULAR HGB CONC 32.2 % (33.0-36.5); MEAN CORPUSCULAR VOLUME 92.5 FL (78-98); MEAN PLATELET VOLUME 9.1 FL (7.4-10.4); MONOCYTES # (AUTO) 0.8 X10'3 (0-0.9); MONOCYTES % (AUTO) 10.1 % (2-12); NEUTROPHILS # (AUTO) 5.2 X10'3 (1.8-7.7); NEUTROPHILS % (AUTO) 63.4 % (42-75); PLATELET COUNT 222 X10'3 (140-440); RED CELL DISTRIBUTION WIDTH 13.2 % (11.5-14.5); WHITE BLOOD COUNT 8.2 X10'3 (4.5-11.0)
[2018-04-03 07:00] VITALS: BP 118/81
[2018-04-03 07:06] LABS: ALANINE AMINOTRANSFERASE 18 U/L (12-78); ALBUMIN 3.3 G/DL (3.4-5.0); ALKALINE PHOSPHATASE 34 IU/L (46-116); ASPARTATE AMINO TRANSFERASE 8 U/L (10-37); BILIRUBIN,TOTAL 0.5 MG/DL (0.1-1.0); BLOOD UREA NITROGEN 32 MG/DL (7-18); BUN/CREATININE RATIO 20.5 (5.4-32.0); CALCIUM 8.9 MG/DL (8.5-10.1); CHLORIDE 95 MMOL/L (99-107); CREATININE 1.56 MG/DL (0.60-1.10); GLUCOSE 103 MG/DL (70-104); POTASSIUM 3.4 MMOL/L (3.5-5.1); SODIUM 144 MMOL/L (135-145); TOTAL PROTEIN 6.5 G/DL (6.4-8.2); eGFR 48 ML/MIN
[2018-04-03 07:44] LABS: ANION GAP 2 (8-16)
[2018-04-03 07:46] LABS: TOTAL CARBON DIOXIDE 47.5 MMOL/L (24-32)
[2018-04-03] MEDS: atorvastatin 20mg tablet PO SCH ×2 (08:00→08:08)
[2018-04-03] MEDS: carVEDilol 12.5mg tablet PO SCH ×2 (08:02→20:11)
[2018-04-03] MEDS: furosemide 40mg/4ml inj IV SCH ×2 (08:02→20:11)
[2018-04-03] MEDS: lisinopril 20mg tablet PO SCH (08:07)
[2018-04-03] MEDS: enoxaparin 40mg/0.4ml syringe SQ SCH (08:08)
[2018-04-03] MEDS: aspirin 81mg tab.chew PO SCH (08:09)
[2018-04-03] MEDS: venlafaxine XR 75mg capsule (Q24H) PO SCH (08:09)
[2018-04-03] MEDS: docusate sod 100mg capsule PO SCH ×2 (08:09→20:00)
[2018-04-03] MEDS: risperiDONE 0.5mg tablet PO SCH ×2 (08:09→20:12)
[2018-04-03 11:00] VITALS: BP 114/78
[2018-04-03 15:00] VITALS: BP 122/88
[2018-04-03 19:00] VITALS: BP 133/85
[2018-04-03] MEDS: traZODone 50mg tablet PO SCH (20:12)
[2018-04-03] MEDS: Melatonin 3mg tablet PO SCH (20:12)
[2018-04-03] MEDS: normal saline 1000ml 1,000 ML IV SCH (22:09)
[2018-04-03 23:00] VITALS: BP 111/62
[2018-04-04] VITALS (9 sets, daily range): BP systolic 98–122; BP diastolic 67–92
[2018-04-04 00:31] LABS: ABG BASE EXCESS 20.1 mmol/L (-2.0-3.0); ABG OXYGEN SATURATION 89.3 % (95-98); ABG PCO2 (T) 100.1 mmHg (35.0-48.0); ABG PH (T) 7.334 (7.350-7.450); ABG PO2 (T) 58.6 mmHg (83-108); FCOHb 0.9 % (0.5-1.5); FLOW 6 L/min; FMetHb 0.3 % (0.3-1.12); FO2Hb 88.2 % (94-100); PATIENT TEMPERATURE 37.1; TOTAL HEMOGLOBIN 14.6 G/dl (14.0-18.0)
[2018-04-04 06:16] LABS: BASOPHILS % (AUTO) 0.3 % (0-1); EOSINOPHILS # (AUTO) 0.9 X10'3 (0-0.9); EOSINOPHILS % (AUTO) 9.2 % (0-6); HEMATOCRIT 41.9 % (42.0-52.0); HEMOGLOBIN 13.5 g/dl (14.0-17.9); LYMPHOCYTES # (AUTO) 1.6 X10'3 (1.1-4.8); LYMPHOCYTES % (AUTO) 16.2 % (21-51); MEAN CORPUSCULAR HEMOGLOBIN 29.9 PG (27.0-31.0); MEAN CORPUSCULAR HGB CONC 32.3 % (33.0-36.5); MEAN CORPUSCULAR VOLUME 92.7 FL (78-98); MEAN PLATELET VOLUME 8.8 FL (7.4-10.4); MONOCYTES # (AUTO) 0.9 X10'3 (0-0.9); MONOCYTES % (AUTO) 9.5 % (2-12); NEUTROPHILS # (AUTO) 6.4 X10'3 (1.8-7.7); NEUTROPHILS % (AUTO) 64.8 % (42-75); PLATELET COUNT 193 X10'3 (140-440); RED BLOOD COUNT 4.52 X10'6 (4.70-6.10); RED CELL DISTRIBUTION WIDTH 13.4 % (11.5-14.5); WHITE BLOOD COUNT 9.8 X10'3 (4.5-11.0)
[2018-04-04 06:49] LABS: ALANINE AMINOTRANSFERASE 18 U/L (12-78); ALBUMIN 3.2 G/DL (3.4-5.0); ALBUMIN/GLOBULIN RATIO 1.1 (1.1-1.5); ALKALINE PHOSPHATASE 33 IU/L (46-116); ASPARTATE AMINO TRANSFERASE 9 U/L (10-37); BILIRUBIN,TOTAL 0.7 MG/DL (0.1-1.0); BLOOD UREA NITROGEN 34 MG/DL (7-18); BUN/CREATININE RATIO 28.3 (5.4-32.0); CHLORIDE 97 MMOL/L (99-107); GLUCOSE 110 MG/DL (70-104); POTASSIUM 3.5 MMOL/L (3.5-5.1); SODIUM 143 MMOL/L (135-145); TOTAL PROTEIN 6.2 G/DL (6.4-8.2); eGFR 64 ML/MIN
[2018-04-04 07:19] LABS: ANION GAP -1 (8-16)
[2018-04-04 07:24] LABS: TOTAL CARBON DIOXIDE 47.3 MMOL/L (24-32)
[2018-04-04] MEDS: risperiDONE 0.5mg tablet PO SCH (08:00)
[2018-04-04] MEDS: furosemide 40mg/4ml inj IV SCH ×2 (08:23→19:57)
[2018-04-04] MEDS: carVEDilol 12.5mg tablet PO SCH ×2 (08:23→19:57)
[2018-04-04] MEDS: enoxaparin 40mg/0.4ml syringe SQ SCH (08:23)
[2018-04-04] MEDS: atorvastatin 20mg tablet PO SCH (08:24)
[2018-04-04] MEDS: lisinopril 20mg tablet PO SCH (08:24)
[2018-04-04] MEDS: aspirin 81mg tab.chew PO SCH (08:24)
[2018-04-04] MEDS: venlafaxine XR 75mg capsule (Q24H) PO SCH (08:24)
[2018-04-04] MEDS: docusate sod 100mg capsule PO SCH ×2 (08:24→19:45)
[2018-04-04] MEDS ORDERED: iohexol 350MG/ML 100ml bottle IV ONE (11:23)
[2018-04-04 11:46] LABS: ABG BASE EXCESS 22.9 mmol/L (-2.0-3.0); ABG HCO3 54.1 mmol/L (22.0-26.0); ABG OXYGEN SATURATION 93.8 % (95-98); ABG PH (T) 7.378 (7.350-7.450); ABG PO2 (T) 69.9 mmHg (83-108); ALLEN'S TEST Positive; FCOHb 0.5 % (0.5-1.5); FMetHb 0.2 % (0.3-1.12); FO2Hb 93.1 % (94-100); RESPIRATORY RATE 22 b/min; TOTAL HEMOGLOBIN 14.4 G/dl (14.0-18.0)
[2018-04-04] MEDS ORDERED: levoFLOXACIN-Levaquin 500mg/D5 100 ML IV SCH (18:27)
[2018-04-04] MEDS: spironolactone 25 MG tablet PO SCH (19:30)
[2018-04-04] MEDS: Melatonin 3mg tablet PO SCH (19:57)
[2018-04-04 20:41] LABS: URINE AMPHETAMINE SCREEN NEGATIVE (Neg); URINE BARBITUATE SCREEN NEGATIVE (Neg); URINE BENZODIAZEPINES SCREEN NEGATIVE (Neg); URINE CANNABINOID SCREEN NEGATIVE (Neg); URINE COCAINE SCREEN NEGATIVE (Neg); URINE METHADONE SCREEN NEGATIVE (Neg); URINE OPIATE SCREEN NEGATIVE (Neg); URINE PHENCYCLIDINE SCREEN NEGATIVE (Neg)
[2018-04-05] MEDS: normal saline 1000ml 1,000 ML IV SCH (00:40)
[2018-04-05 03:02] VITALS: BP 96/66
[2018-04-05 05:53] LABS: BASOPHILS % (AUTO) 0.4 % (0-1); EOSINOPHILS % (AUTO) 11.5 % (0-6); HEMATOCRIT 37.1 % (42.0-52.0); LYMPHOCYTES # (AUTO) 1.2 X10'3 (1.1-4.8); LYMPHOCYTES % (AUTO) 13.6 % (21-51); MEAN CORPUSCULAR HEMOGLOBIN 29.8 PG (27.0-31.0); MEAN CORPUSCULAR HGB CONC 32.3 % (33.0-36.5); MEAN CORPUSCULAR VOLUME 92.4 FL (78-98); MEAN PLATELET VOLUME 9.1 FL (7.4-10.4); MONOCYTES % (AUTO) 11.2 % (2-12); NEUTROPHILS # (AUTO) 5.7 X10'3 (1.8-7.7); NEUTROPHILS % (AUTO) 63.3 % (42-75); PLATELET COUNT 150 X10'3 (140-440); RED BLOOD COUNT 4.01 X10'6 (4.70-6.10)
[2018-04-05 06:00] VITALS: BP 96/66
[2018-04-05 06:20] LABS: ALANINE AMINOTRANSFERASE 14 U/L (12-78); ALBUMIN 2.9 G/DL (3.4-5.0); ALKALINE PHOSPHATASE 35 IU/L (46-116); ASPARTATE AMINO TRANSFERASE 9 U/L (10-37); BILIRUBIN,TOTAL 0.5 MG/DL (0.1-1.0); BLOOD UREA NITROGEN 39 MG/DL (7-18); BUN/CREATININE RATIO 25.7 (5.4-32.0); CALCIUM 8.7 MG/DL (8.5-10.1); CHLORIDE 97 MMOL/L (99-107); CREATININE 1.52 MG/DL (0.60-1.10); GLUCOSE 115 MG/DL (70-104); MAGNESIUM 2.1 MG/DL (1.5-2.4); PHOSPHORUS 3.5 MG/DL (2.3-4.5); POTASSIUM 3.4 MMOL/L (3.5-5.1); SODIUM 142 MMOL/L (135-145); TOTAL PROTEIN 5.9 G/DL (6.4-8.2); eGFR 49 ML/MIN
[2018-04-05 06:38] LABS: ANION GAP -4 (8-16)
[2018-04-05] MEDS: carVEDilol 12.5mg tablet PO SCH ×2 (08:00→21:56)
[2018-04-05] MEDS: atorvastatin 20mg tablet PO SCH (08:00)
[2018-04-05] MEDS: lisinopril 20mg tablet PO SCH (08:00)
[2018-04-05] MEDS: furosemide 40mg/4ml inj IV SCH (08:00)
[2018-04-05] MEDS: spironolactone 25 MG tablet PO SCH (08:00)
[2018-04-05 11:00] VITALS: BP 107/74
[2018-04-05] MEDS: potassium Cl 20 mEq SR tablet PO PRN (12:09)
[2018-04-05] MEDS: enoxaparin 40mg/0.4ml syringe SQ SCH (12:09)
[2018-04-05] MEDS: aspirin 81mg tab.chew PO SCH (12:09)
[2018-04-05] MEDS: docusate sod 100mg capsule PO SCH ×2 (12:10→22:08)
[2018-04-05 13:36] LABS: ABG BASE EXCESS 19.4 mmol/L (-2.0-3.0); ABG OXYGEN SATURATION 96.8 % (95-98); ABG PCO2 (T) 83.4 mmHg (35.0-48.0); ABG PH (T) 7.387 (7.350-7.450); ABG PO2 (T) 93.7 mmHg (83-108); ALLEN'S TEST Positive; FCOHb 0.3 % (0.5-1.5); FMetHb 0.3 % (0.3-1.12); FO2Hb 96.2 % (94-100); RESPIRATORY RATE 22 b/min; TOTAL HEMOGLOBIN 13.4 G/dl (14.0-18.0)
[2018-04-05 15:00] VITALS: BP 112/74
[2018-04-05] MEDS ORDERED: levoFLOXACIN 500mg tablet PO SCH (16:15)
[2018-04-05 19:00] VITALS: BP 125/78
[2018-04-05] MEDS: lactobacillus rhamnosus 10,000 MMU CELLS/CAPSULE PO SCH (21:55)
[2018-04-05] MEDS: furosemide 20 MG/2 ML vial IV SCH (21:55)
[2018-04-05] MEDS: Melatonin 3mg tablet PO SCH (21:56)
[2018-04-05 21:58] LABS: CREATINE KINASE 21 U/L (39-308)
[2018-04-05] MEDS: pyridostigmine br 60mg tablet PO SCH (21:58)
[2018-04-05 23:00] VITALS: BP 118/78
[2018-04-06 03:00] VITALS: BP 112/73
[2018-04-06 05:26] LABS: HEMOGLOBIN 12.4 g/dl (14.0-17.9); MEAN CORPUSCULAR HEMOGLOBIN 31.5 PG (27.0-31.0); MEAN CORPUSCULAR HGB CONC 34.3 % (33.0-36.5); MEAN CORPUSCULAR VOLUME 91.6 FL (78-98); MEAN PLATELET VOLUME 9.4 FL (7.4-10.4); NEUTROPHILS % (AUTO) 59.9 % (42-75); PLATELET COUNT 139 X10'3 (140-440); RED BLOOD COUNT 3.94 X10'6 (4.70-6.10); WHITE BLOOD COUNT 8.1 X10'3 (4.5-11.0)
[2018-04-06 05:27] LABS: BASOPHILS % (AUTO) 0.5 % (0-1); EOSINOPHILS # (AUTO) 1.2 X10'3 (0-0.9); EOSINOPHILS % (AUTO) 14.5 % (0-6); LYMPHOCYTES # (AUTO) 1.2 X10'3 (1.1-4.8); LYMPHOCYTES % (AUTO) 14.8 % (21-51); MONOCYTES # (AUTO) 0.8 X10'3 (0-0.9); MONOCYTES % (AUTO) 10.3 % (2-12); NEUTROPHILS # (AUTO) 4.9 X10'3 (1.8-7.7)
[2018-04-06 05:40] LABS: ALANINE AMINOTRANSFERASE 15 U/L (12-78); ALBUMIN 2.9 G/DL (3.4-5.0); ALKALINE PHOSPHATASE 30 IU/L (46-116); ASPARTATE AMINO TRANSFERASE 9 U/L (10-37); BILIRUBIN,TOTAL 0.4 MG/DL (0.1-1.0); BLOOD UREA NITROGEN 43 MG/DL (7-18); BUN/CREATININE RATIO 31.2 (5.4-32.0); CALCIUM 8.6 MG/DL (8.5-10.1); CHLORIDE 99 MMOL/L (99-107); CREATINE KINASE 18 U/L (39-308); CREATININE 1.38 MG/DL (0.60-1.10); GLUCOSE 134 MG/DL (70-104); MAGNESIUM 2.2 MG/DL (1.5-2.4); PHOSPHORUS 3.9 MG/DL (2.3-4.5); POTASSIUM 3.3 MMOL/L (3.5-5.1); SODIUM 147 MMOL/L (135-145); TOTAL PROTEIN 5.9 G/DL (6.4-8.2); eGFR 55 ML/MIN
[2018-04-06 06:58] LABS: ANION GAP 2 (8-16); TOTAL CARBON DIOXIDE 45.9 MMOL/L (24-32)
[2018-04-06] MEDS: docusate sod 100mg capsule PO SCH ×2 (08:00→20:00)
[2018-04-06 08:21] VITALS: BP 126/83
[2018-04-06] MEDS: furosemide 20 MG/2 ML vial IV SCH ×2 (09:05→20:40)
[2018-04-06] MEDS: aspirin 81mg tab.chew PO SCH (09:06)
[2018-04-06] MEDS: carVEDilol 12.5mg tablet PO SCH ×2 (09:06→20:39)
[2018-04-06] MEDS: lactobacillus rhamnosus 10,000 MMU CELLS/CAPSULE PO SCH ×2 (09:06→20:39)
[2018-04-06] MEDS: potassium Cl 20 mEq SR tablet PO PRN ×2 (09:06→20:39)
[2018-04-06] MEDS: lisinopril 20mg tablet PO SCH (09:07)
[2018-04-06] MEDS: spironolactone 25 MG tablet PO SCH (09:07)
[2018-04-06] MEDS: enoxaparin 40mg/0.4ml syringe SQ SCH (09:20)
[2018-04-06 11:00] VITALS: BP 173/78
[2018-04-06] MEDS: pyridostigmine br 60mg tablet PO SCH ×3 (11:00→20:40)
[2018-04-06 19:00] VITALS: BP 120/74
[2018-04-06] MEDS: Melatonin 3mg tablet PO SCH (20:39)
[2018-04-06 23:00] VITALS: BP 113/68
[2018-04-07 03:00] VITALS: BP 120/72
[2018-04-07 05:58] LABS: MAGNESIUM 2.1 MG/DL (1.5-2.4); PHOSPHORUS 2.9 MG/DL (2.3-4.5)
[2018-04-07 06:00] VITALS: BP 126/78
[2018-04-07 07:57] LABS: BASOPHILS % (AUTO) 0.6 % (0-1); EOSINOPHILS # (AUTO) 0.9 X10'3 (0-0.9); HEMATOCRIT 35.6 % (42.0-52.0); HEMOGLOBIN 11.5 g/dl (14.0-17.9); LYMPHOCYTES # (AUTO) 1.4 X10'3 (1.1-4.8); LYMPHOCYTES % (AUTO) 22.7 % (21-51); MEAN CORPUSCULAR HEMOGLOBIN 29.9 PG (27.0-31.0); MEAN CORPUSCULAR HGB CONC 32.2 % (33.0-36.5); MEAN CORPUSCULAR VOLUME 92.9 FL (78-98); MEAN PLATELET VOLUME 9.3 FL (7.4-10.4); MONOCYTES # (AUTO) 0.5 X10'3 (0-0.9); MONOCYTES % (AUTO) 8.6 % (2-12); NEUTROPHILS # (AUTO) 3.3 X10'3 (1.8-7.7); NEUTROPHILS % (AUTO) 53.1 % (42-75); PLATELET COUNT 142 X10'3 (140-440); RED BLOOD COUNT 3.83 X10'6 (4.70-6.10); RED CELL DISTRIBUTION WIDTH 12.9 % (11.5-14.5); WHITE BLOOD COUNT 6.2 X10'3 (4.5-11.0)
[2018-04-07 08:25] LABS: ALANINE AMINOTRANSFERASE 16 U/L (12-78); ALBUMIN 2.8 G/DL (3.4-5.0); ALBUMIN/GLOBULIN RATIO 0.9 (1.1-1.5); ALKALINE PHOSPHATASE 30 IU/L (46-116); ASPARTATE AMINO TRANSFERASE 10 U/L (10-37); BILIRUBIN,TOTAL 0.7 MG/DL (0.1-1.0); BLOOD UREA NITROGEN 34 MG/DL (7-18); BUN/CREATININE RATIO 29.8 (5.4-32.0); CALCIUM 8.7 MG/DL (8.5-10.1); CHLORIDE 101 MMOL/L (99-107); CREATININE 1.14 MG/DL (0.60-1.10); GLUCOSE 110 MG/DL (70-104); POTASSIUM 3.4 MMOL/L (3.5-5.1); SODIUM 148 MMOL/L (135-145); TOTAL PROTEIN 5.9 G/DL (6.4-8.2); eGFR 68 ML/MIN
[2018-04-07 08:27] LABS: ANION GAP 2 (8-16)
[2018-04-07 08:29] LABS: TOTAL CARBON DIOXIDE 44.9 MMOL/L (24-32)
[2018-04-07] MEDS: lactobacillus rhamnosus 10,000 MMU CELLS/CAPSULE PO SCH ×2 (08:38→20:24)
[2018-04-07] MEDS: lisinopril 20mg tablet PO SCH (08:38)
[2018-04-07] MEDS: spironolactone 25 MG tablet PO SCH (08:39)
[2018-04-07] MEDS: aspirin 81mg tab.chew PO SCH (08:39)
[2018-04-07] MEDS: docusate sod 100mg capsule PO SCH ×2 (08:40→20:24)
[2018-04-07] MEDS: carVEDilol 12.5mg tablet PO SCH ×2 (08:40→20:24)
[2018-04-07] MEDS: pyridostigmine br 60mg tablet PO SCH ×3 (08:41→20:24)
[2018-04-07] MEDS: enoxaparin 40mg/0.4ml syringe SQ SCH (08:46)
[2018-04-07] MEDS: furosemide 20 MG/2 ML vial IV SCH ×2 (08:46→20:25)
[2018-04-07 11:00] VITALS: BP 120/72
[2018-04-07 15:00] VITALS: BP 119/77
[2018-04-07 19:00] VITALS: BP 133/88
[2018-04-07] MEDS: Melatonin 3mg tablet PO SCH (20:25)
[2018-04-07] MEDS: methylPREDNISolone sod succ 125mg/2ml vial IV SCH (20:25)
[2018-04-07] MEDS: normal saline 1000ml 1,000 ML IV SCH (22:09)
[2018-04-07 23:00] VITALS: BP 144/82
[2018-04-08] MEDS: methylPREDNISolone sod succ 125mg/2ml vial IV SCH ×4 (01:02→21:05)
[2018-04-08] MEDS: potassium Cl 20 mEq SR tablet PO PRN ×4 (01:02→21:06)
[2018-04-08 03:00] VITALS: BP 125/83
[2018-04-08 06:00] VITALS: BP 141/84
[2018-04-08 06:02] LABS: ALANINE AMINOTRANSFERASE 16 U/L (12-78); ALBUMIN 3.1 G/DL (3.4-5.0); ALBUMIN/GLOBULIN RATIO 0.8 (1.1-1.5); ALKALINE PHOSPHATASE 42 IU/L (46-116); ANION GAP 9 (8-16); ASPARTATE AMINO TRANSFERASE 12 U/L (10-37); BILIRUBIN,TOTAL 0.9 MG/DL (0.1-1.0); BLOOD UREA NITROGEN 35 MG/DL (7-18); BUN/CREATININE RATIO 25.5 (5.4-32.0); CALCIUM 9.2 MG/DL (8.5-10.1); CHLORIDE 98 MMOL/L (99-107); CREATININE 1.37 MG/DL (0.60-1.10); GLUCOSE 181 MG/DL (70-104); MAGNESIUM 1.9 MG/DL (1.5-2.4); PHOSPHORUS 1.4 MG/DL (2.3-4.5); POTASSIUM 3.2 MMOL/L (3.5-5.1); SODIUM 143 MMOL/L (135-145); TOTAL CARBON DIOXIDE 36.5 MMOL/L (24-32); TOTAL PROTEIN 6.8 G/DL (6.4-8.2); eGFR 55 ML/MIN
[2018-04-08 06:17] LABS: BASOPHILS % (AUTO) 0 % (0-1); EOSINOPHILS # (AUTO) 0.1 X10'3 (0-0.9); EOSINOPHILS % (AUTO) 1.3 % (0-6); HEMATOCRIT 38.4 % (42.0-52.0); HEMOGLOBIN 12.9 g/dl (14.0-17.9); LYMPHOCYTES # (AUTO) 0.6 X10'3 (1.1-4.8); LYMPHOCYTES % (AUTO) 9.8 % (21-51); MEAN CORPUSCULAR HEMOGLOBIN 30.4 PG (27.0-31.0); MEAN CORPUSCULAR HGB CONC 33.6 % (33.0-36.5); MEAN CORPUSCULAR VOLUME 90.3 FL (78-98); MEAN PLATELET VOLUME 9.9 FL (7.4-10.4); MONOCYTES # (AUTO) 0.1 X10'3 (0-0.9); NEUTROPHILS # (AUTO) 5.2 X10'3 (1.8-7.7); NEUTROPHILS % (AUTO) 87.9 % (42-75); PLATELET COUNT 174 X10'3 (140-440); RED BLOOD COUNT 4.25 X10'6 (4.70-6.10); RED CELL DISTRIBUTION WIDTH 12.6 % (11.5-14.5)
[2018-04-08] MEDS: furosemide 20 MG/2 ML vial IV SCH (07:32)
[2018-04-08] MEDS: docusate sod 100mg capsule PO SCH ×2 (07:34→21:05)
[2018-04-08] MEDS: enoxaparin 40mg/0.4ml syringe SQ SCH (07:34)
[2018-04-08] MEDS: carVEDilol 12.5mg tablet PO SCH ×2 (07:34→21:05)
[2018-04-08] MEDS: lactobacillus rhamnosus 10,000 MMU CELLS/CAPSULE PO SCH ×2 (07:34→21:05)
[2018-04-08] MEDS: lisinopril 20mg tablet PO SCH (07:35)
[2018-04-08] MEDS: pyridostigmine br 60mg tablet PO SCH ×3 (07:36→21:05)
[2018-04-08] MEDS: spironolactone 25 MG tablet PO SCH (07:36)
[2018-04-08] MEDS: aspirin 81mg tab.chew PO SCH (07:51)
[2018-04-08] MEDS ORDERED: amox tr/potassium clavulanate 500mg/125mg TAB PO SCH (08:30)
[2018-04-08 11:00] VITALS: BP 108/76
[2018-04-08 12:30] LABS: ABG BASE EXCESS 16.9 mmol/L (-2.0-3.0); ABG HCO3 42.6 mmol/L (22.0-26.0); ABG OXYGEN SATURATION 97.7 % (95-98); ABG PCO2 (T) 54.4 mmHg (35.0-48.0); ABG PH (T) 7.512 (7.350-7.450); ABG PO2 (T) 95.1 mmHg (83-108); ALLEN'S TEST Positive; FCOHb 0.2 % (0.5-1.5); FLOW 8 L/min; FMetHb 0.2 % (0.3-1.12); FO2Hb 97.3 % (94-100); TOTAL HEMOGLOBIN 13.4 G/dl (14.0-18.0)
[2018-04-08 15:00] VITALS: BP 133/86
[2018-04-08 19:00] VITALS: BP 134/97
[2018-04-08] MEDS: Melatonin 3mg tablet PO SCH (21:06)
[2018-04-08 23:00] VITALS: BP 135/69
[2018-04-09] MEDS: potassium Cl 20 mEq SR tablet PO PRN ×2 (02:55→21:03)
[2018-04-09] MEDS: methylPREDNISolone sod succ 125mg/2ml vial IV SCH ×4 (02:55→21:03)
[2018-04-09 03:00] VITALS: BP_SYST 125; BP_SYST 165; BP_DIAS 101; BP_DIAS 76
[2018-04-09 06:12] LABS: BASOPHILS % (AUTO) 0 % (0-1); EOSINOPHILS # (AUTO) 0.2 X10'3 (0-0.9); EOSINOPHILS % (AUTO) 1.7 % (0-6); HEMATOCRIT 36.6 % (42.0-52.0); HEMOGLOBIN 12.1 g/dl (14.0-17.9); LYMPHOCYTES # (AUTO) 0.5 X10'3 (1.1-4.8); LYMPHOCYTES % (AUTO) 4.6 % (21-51); MEAN CORPUSCULAR HEMOGLOBIN 29.7 PG (27.0-31.0); MEAN CORPUSCULAR VOLUME 89.8 FL (78-98); MEAN PLATELET VOLUME 9.6 FL (7.4-10.4); MONOCYTES # (AUTO) 0.3 X10'3 (0-0.9); MONOCYTES % (AUTO) 2.2 % (2-12); NEUTROPHILS # (AUTO) 10.3 X10'3 (1.8-7.7); NEUTROPHILS % (AUTO) 91.5 % (42-75); PLATELET COUNT 200 X10'3 (140-440); RED BLOOD COUNT 4.08 X10'6 (4.70-6.10); RED CELL DISTRIBUTION WIDTH 12.6 % (11.5-14.5); WHITE BLOOD COUNT 11.3 X10'3 (4.5-11.0)
[2018-04-09 06:31] LABS: ALANINE AMINOTRANSFERASE 18 U/L (12-78); ALBUMIN 2.8 G/DL (3.4-5.0); ALBUMIN/GLOBULIN RATIO 0.8 (1.1-1.5); ALKALINE PHOSPHATASE 38 IU/L (46-116); ANION GAP 9 (8-16); ASPARTATE AMINO TRANSFERASE 14 U/L (10-37); BILIRUBIN,TOTAL 0.5 MG/DL (0.1-1.0); BLOOD UREA NITROGEN 43 MG/DL (7-18); BUN/CREATININE RATIO 33.9 (5.4-32.0); CALCIUM 8.8 MG/DL (8.5-10.1); CHLORIDE 100 MMOL/L (99-107); CREATININE 1.27 MG/DL (0.60-1.10); GLUCOSE 164 MG/DL (70-104); MAGNESIUM 2.1 MG/DL (1.5-2.4); PHOSPHORUS 3.1 MG/DL (2.3-4.5); POTASSIUM 3.1 MMOL/L (3.5-5.1); SODIUM 142 MMOL/L (135-145); TOTAL CARBON DIOXIDE 32.6 MMOL/L (24-32); TOTAL PROTEIN 6.1 G/DL (6.4-8.2); eGFR 60 ML/MIN
[2018-04-09 08:09] VITALS: BP 128/73
[2018-04-09] MEDS: lactobacillus rhamnosus 10,000 MMU CELLS/CAPSULE PO SCH ×2 (08:23→21:03)
[2018-04-09] MEDS: lisinopril 20mg tablet PO SCH (08:23)
[2018-04-09] MEDS: pyridostigmine br 60mg tablet PO SCH ×3 (08:23→21:05)
[2018-04-09] MEDS: aspirin 81mg tab.chew PO SCH (08:23)
[2018-04-09] MEDS: enoxaparin 40mg/0.4ml syringe SQ SCH (08:23)
[2018-04-09] MEDS: spironolactone 25 MG tablet PO SCH (08:24)
[2018-04-09] MEDS: docusate sod 100mg capsule PO SCH ×2 (08:24→21:02)
[2018-04-09] MEDS: furosemide 20 MG/2 ML vial IV SCH (08:24)
[2018-04-09] MEDS: carVEDilol 12.5mg tablet PO SCH ×2 (08:24→21:03)
[2018-04-09 15:00] VITALS: BP 133/81
[2018-04-09 19:00] VITALS: BP 147/83
[2018-04-09] MEDS: Melatonin 3mg tablet PO SCH (21:03)
[2018-04-09] MEDS: normal saline 1000ml 1,000 ML IV SCH (22:09)
[2018-04-09 23:00] VITALS: BP 146/97
[2018-04-10] MEDS: methylPREDNISolone sod succ 125mg/2ml vial IV SCH ×4 (01:51→20:41)
[2018-04-10] MEDS: potassium Cl 20 mEq SR tablet PO PRN ×2 (02:06→08:13)
[2018-04-10 03:00] VITALS: BP 137/87
[2018-04-10 06:00] VITALS: BP 152/84
[2018-04-10 06:07] LABS: BASOPHILS % (AUTO) 0 % (0-1); EOSINOPHILS % (AUTO) 0 % (0-6); HEMATOCRIT 36.8 % (42.0-52.0); HEMOGLOBIN 11.9 g/dl (14.0-17.9); LYMPHOCYTES # (AUTO) 0.5 X10'3 (1.1-4.8); LYMPHOCYTES % (AUTO) 4.1 % (21-51); MEAN CORPUSCULAR HEMOGLOBIN 29.6 PG (27.0-31.0); MEAN CORPUSCULAR HGB CONC 32.4 % (33.0-36.5); MEAN CORPUSCULAR VOLUME 91.3 FL (78-98); MEAN PLATELET VOLUME 9.7 FL (7.4-10.4); MONOCYTES # (AUTO) 0.3 X10'3 (0-0.9); MONOCYTES % (AUTO) 2.2 % (2-12); NEUTROPHILS # (AUTO) 11.1 X10'3 (1.8-7.7); NEUTROPHILS % (AUTO) 93.7 % (42-75); PLATELET COUNT 205 X10'3 (140-440); RED BLOOD COUNT 4.03 X10'6 (4.70-6.10); RED CELL DISTRIBUTION WIDTH 12.5 % (11.5-14.5); WHITE BLOOD COUNT 11.9 X10'3 (4.5-11.0)
[2018-04-10 06:14] LABS: ALANINE AMINOTRANSFERASE 27 U/L (12-78); ALBUMIN 2.7 G/DL (3.4-5.0); ALBUMIN/GLOBULIN RATIO 0.8 (1.1-1.5); ALKALINE PHOSPHATASE 35 IU/L (46-116); ANION GAP 11 (8-16); ASPARTATE AMINO TRANSFERASE 17 U/L (10-37); BILIRUBIN,TOTAL 0.3 MG/DL (0.1-1.0); BLOOD UREA NITROGEN 42 MG/DL (7-18); BUN/CREATININE RATIO 34.7 (5.4-32.0); CALCIUM 8.5 MG/DL (8.5-10.1); CHLORIDE 101 MMOL/L (99-107); CREATININE 1.21 MG/DL (0.60-1.10); GLUCOSE 148 MG/DL (70-104); MAGNESIUM 2.1 MG/DL (1.5-2.4); PHOSPHORUS 4.4 MG/DL (2.3-4.5); POTASSIUM 3.1 MMOL/L (3.5-5.1); SODIUM 142 MMOL/L (135-145); TOTAL CARBON DIOXIDE 30.4 MMOL/L (24-32); TOTAL PROTEIN 5.9 G/DL (6.4-8.2); eGFR 64 ML/MIN
[2018-04-10] MEDS: lactobacillus rhamnosus 10,000 MMU CELLS/CAPSULE PO SCH ×2 (08:06→20:41)
[2018-04-10] MEDS: docusate sod 100mg capsule PO SCH ×2 (08:06→20:41)
[2018-04-10] MEDS: carVEDilol 12.5mg tablet PO SCH ×2 (08:06→20:41)
[2018-04-10] MEDS: pyridostigmine br 60mg tablet PO SCH ×3 (08:06→20:41)
[2018-04-10] MEDS: lisinopril 20mg tablet PO SCH (08:07)
[2018-04-10] MEDS: spironolactone 25 MG tablet PO SCH (08:07)
[2018-04-10] MEDS: aspirin 81mg tab.chew PO SCH (08:07)
[2018-04-10] MEDS: furosemide 20 MG/2 ML vial IV SCH (08:07)
[2018-04-10] MEDS: enoxaparin 40mg/0.4ml syringe SQ SCH (08:08)
[2018-04-10 11:00] VITALS: BP 121/72
[2018-04-10] MEDS: normal saline 1000ml 1,000 ML IV SCH (13:17)
[2018-04-10 15:00] VITALS: BP 115/83
[2018-04-10 18:00] VITALS: BP 131/67
[2018-04-10 19:20] LABS: ABG BASE EXCESS 3.9 mmol/L (-2.0-3.0); ABG HCO3 27.1 mmol/L (22.0-26.0); ABG OXYGEN SATURATION 95.7 % (95-98); ABG PCO2 (T) 35.7 mmHg (35.0-48.0); ABG PH (T) 7.497 (7.350-7.450); ABG PO2 (T) 72.4 mmHg (83-108); FCOHb 0.3 % (0.5-1.5); FLOW 5 L/min; FMetHb 0.2 % (0.3-1.12); FO2Hb 95.2 % (94-100); PATIENT TEMPERATURE 36.7; TOTAL HEMOGLOBIN 13.4 G/dl (14.0-18.0)
[2018-04-10] MEDS: Melatonin 3mg tablet PO SCH (20:41)
[2018-04-10 22:00] VITALS: BP 136/82
[2018-04-11 02:00] VITALS: BP 134/81
[2018-04-11] MEDS: methylPREDNISolone sod succ 125mg/2ml vial IV SCH ×2 (02:25→07:29)
[2018-04-11 05:28] LABS: BASOPHILS % (AUTO) 0 % (0-1); EOSINOPHILS # (AUTO) 0.1 X10'3 (0-0.9); EOSINOPHILS % (AUTO) 1.2 % (0-6); HEMATOCRIT 37.9 % (42.0-52.0); HEMOGLOBIN 12.5 g/dl (14.0-17.9); LYMPHOCYTES # (AUTO) 0.4 X10'3 (1.1-4.8); LYMPHOCYTES % (AUTO) 3.9 % (21-51); MEAN CORPUSCULAR HEMOGLOBIN 29.6 PG (27.0-31.0); MEAN CORPUSCULAR HGB CONC 32.9 % (33.0-36.5); MEAN CORPUSCULAR VOLUME 90.1 FL (78-98); MEAN PLATELET VOLUME 9.6 FL (7.4-10.4); MONOCYTES # (AUTO) 0.3 X10'3 (0-0.9); MONOCYTES % (AUTO) 2.5 % (2-12); NEUTROPHILS % (AUTO) 92.4 % (42-75); PLATELET COUNT 222 X10'3 (140-440); RED BLOOD COUNT 4.21 X10'6 (4.70-6.10); RED CELL DISTRIBUTION WIDTH 12.6 % (11.5-14.5); WHITE BLOOD COUNT 10.9 X10'3 (4.5-11.0)
[2018-04-11 05:46] LABS: ALANINE AMINOTRANSFERASE 36 U/L (12-78); ALBUMIN 2.5 G/DL (3.4-5.0); ALBUMIN/GLOBULIN RATIO 0.8 (1.1-1.5); ALKALINE PHOSPHATASE 30 IU/L (46-116); ANION GAP 9 (8-16); ASPARTATE AMINO TRANSFERASE 12 U/L (10-37); BILIRUBIN,TOTAL 0.3 MG/DL (0.1-1.0); BLOOD UREA NITROGEN 37 MG/DL (7-18); BUN/CREATININE RATIO 30.8 (5.4-32.0); CALCIUM 8.2 MG/DL (8.5-10.1); CHLORIDE 102 MMOL/L (99-107); GLUCOSE 154 MG/DL (70-104); MAGNESIUM 1.9 MG/DL (1.5-2.4); PHOSPHORUS 3.9 MG/DL (2.3-4.5); POTASSIUM 3.2 MMOL/L (3.5-5.1); SODIUM 141 MMOL/L (135-145); TOTAL CARBON DIOXIDE 29.8 MMOL/L (24-32); TOTAL PROTEIN 5.6 G/DL (6.4-8.2); eGFR 64 ML/MIN
[2018-04-11] MEDS: potassium Cl 20 mEq SR tablet PO PRN ×3 (07:28→22:25)
[2018-04-11] MEDS: enoxaparin 40mg/0.4ml syringe SQ SCH (07:28)
[2018-04-11] MEDS: spironolactone 25 MG tablet PO SCH (07:28)
[2018-04-11] MEDS: lactobacillus rhamnosus 10,000 MMU CELLS/CAPSULE PO SCH ×2 (07:28→19:55)
[2018-04-11] MEDS: carVEDilol 12.5mg tablet PO SCH ×2 (07:28→19:56)
[2018-04-11] MEDS: lisinopril 20mg tablet PO SCH (07:28)
[2018-04-11] MEDS: furosemide 20 MG/2 ML vial IV SCH (07:29)
[2018-04-11] MEDS: pyridostigmine br 60mg tablet PO SCH ×3 (07:29→20:00)
[2018-04-11] MEDS: aspirin 81mg tab.chew PO SCH (07:30)
[2018-04-11] MEDS: docusate sod 100mg capsule PO SCH ×2 (08:00→19:55)
[2018-04-11 11:00] VITALS: BP 120/80
[2018-04-11 15:00] VITALS: BP 120/77
[2018-04-11 18:58] VITALS: BP 140/81
[2018-04-11] MEDS: Melatonin 3mg tablet PO SCH (20:00)
[2018-04-11] MEDS: normal saline 1000ml 1,000 ML IV SCH (22:09)
[2018-04-11 23:00] VITALS: BP 128/85
[2018-04-12 03:00] VITALS: BP 142/86
[2018-04-12] MEDS: normal saline 1000ml 1,000 ML IV SCH (05:08)
[2018-04-12 05:34] LABS: BASOPHILS % (AUTO) 0.1 % (0-1); EOSINOPHILS % (AUTO) 0 % (0-6); HEMOGLOBIN 12.9 g/dl (14.0-17.9); LYMPHOCYTES # (AUTO) 0.8 X10'3 (1.1-4.8); LYMPHOCYTES % (AUTO) 7.5 % (21-51); MEAN CORPUSCULAR HEMOGLOBIN 29.8 PG (27.0-31.0); MEAN CORPUSCULAR VOLUME 90.2 FL (78-98); MEAN PLATELET VOLUME 9.7 FL (7.4-10.4); MONOCYTES # (AUTO) 0.9 X10'3 (0-0.9); MONOCYTES % (AUTO) 7.9 % (2-12); NEUTROPHILS # (AUTO) 9.3 X10'3 (1.8-7.7); NEUTROPHILS % (AUTO) 84.5 % (42-75); PLATELET COUNT 237 X10'3 (140-440); RED BLOOD COUNT 4.32 X10'6 (4.70-6.10); RED CELL DISTRIBUTION WIDTH 12.3 % (11.5-14.5)
[2018-04-12 05:56] LABS: ALANINE AMINOTRANSFERASE 46 U/L (12-78); ALBUMIN 2.3 G/DL (3.4-5.0); ALBUMIN/GLOBULIN RATIO 0.8 (1.1-1.5); ALKALINE PHOSPHATASE 36 IU/L (46-116); ANION GAP 9 (8-16); ASPARTATE AMINO TRANSFERASE 16 U/L (10-37); BILIRUBIN,TOTAL 0.3 MG/DL (0.1-1.0); BLOOD UREA NITROGEN 36 MG/DL (7-18); CALCIUM 7.8 MG/DL (8.5-10.1); CHLORIDE 103 MMOL/L (99-107); CREATININE 1.16 MG/DL (0.60-1.10); GLUCOSE 126 MG/DL (70-104); MAGNESIUM 1.9 MG/DL (1.5-2.4); PHOSPHORUS 2.9 MG/DL (2.3-4.5); POTASSIUM 3.5 MMOL/L (3.5-5.1); SODIUM 141 MMOL/L (135-145); TOTAL CARBON DIOXIDE 29.2 MMOL/L (24-32); TOTAL PROTEIN 5.2 G/DL (6.4-8.2); eGFR 67 ML/MIN
[2018-04-12 06:00] VITALS: BP 142/85
[2018-04-12] MEDS: lactobacillus rhamnosus 10,000 MMU CELLS/CAPSULE PO SCH ×2 (07:45→19:56)
[2018-04-12] MEDS: carVEDilol 12.5mg tablet PO SCH ×2 (07:45→19:56)
[2018-04-12] MEDS: spironolactone 25 MG tablet PO SCH (07:45)
[2018-04-12] MEDS: pyridostigmine br 60mg tablet PO SCH ×3 (07:45→20:02)
[2018-04-12] MEDS: predniSONE 20 mg tablet PO SCH (07:46)
[2018-04-12] MEDS: furosemide 20 MG/2 ML vial IV SCH (07:46)
[2018-04-12] MEDS: lisinopril 20mg tablet PO SCH (07:46)
[2018-04-12] MEDS: aspirin 81mg tab.chew PO SCH (07:46)
[2018-04-12] MEDS: enoxaparin 40mg/0.4ml syringe SQ SCH (07:47)
[2018-04-12] MEDS: docusate sod 100mg capsule PO SCH ×2 (07:47→19:55)
[2018-04-12 11:00] VITALS: BP 116/73
[2018-04-12] MEDS: lactose-reduced food (Ensure High Protein) 237ml bottle PO SCH ×2 (13:19→18:10)
[2018-04-12 15:00] VITALS: BP 112/57
[2018-04-12 18:46] VITALS: BP 116/66
[2018-04-12] MEDS: Melatonin 3mg tablet PO SCH (20:02)
[2018-04-12 23:00] VITALS: BP 130/78
[2018-04-13 03:00] VITALS: BP 149/94
[2018-04-13 05:37] LABS: PHOSPHORUS 2.5 MG/DL (2.3-4.5)
[2018-04-13] MEDS: potassium Cl 20 mEq SR tablet PO PRN ×3 (05:55→15:08)
[2018-04-13 06:00] VITALS: BP 129/86
[2018-04-13] MEDS: docusate sod 100mg capsule PO SCH ×2 (08:00→20:07)
[2018-04-13] MEDS: lactose-reduced food (Ensure High Protein) 237ml bottle PO SCH ×3 (08:00→18:08)
[2018-04-13] MEDS: pyridostigmine br 60mg tablet PO SCH ×3 (08:24→20:07)
[2018-04-13] MEDS: predniSONE 20 mg tablet PO SCH (08:24)
[2018-04-13] MEDS: lactobacillus rhamnosus 10,000 MMU CELLS/CAPSULE PO SCH ×2 (08:24→20:07)
[2018-04-13] MEDS: lisinopril 20mg tablet PO SCH (08:24)
[2018-04-13] MEDS: furosemide 20 MG/2 ML vial IV SCH (08:24)
[2018-04-13] MEDS: carVEDilol 12.5mg tablet PO SCH ×2 (08:24→20:07)
[2018-04-13] MEDS: enoxaparin 40mg/0.4ml syringe SQ SCH (08:25)
[2018-04-13] MEDS: spironolactone 25 MG tablet PO SCH (08:26)
[2018-04-13] MEDS: aspirin 81mg tab.chew PO SCH (09:10)
[2018-04-13 11:00] VITALS: BP 92/66
[2018-04-13 15:50] VITALS: BP 101/64
[2018-04-13 19:00] VITALS: BP 117/75
[2018-04-13] MEDS: Melatonin 3mg tablet PO SCH (20:05)
[2018-04-13 23:00] VITALS: BP 139/74
[2018-04-14 03:00] VITALS: BP 127/85
[2018-04-14 05:21] LABS: BASOPHILS % (AUTO) 0.1 % (0-1); EOSINOPHILS # (AUTO) 0.3 X10'3 (0-0.9); EOSINOPHILS % (AUTO) 2.4 % (0-6); HEMATOCRIT 38.4 % (42.0-52.0); HEMOGLOBIN 12.6 g/dl (14.0-17.9); LYMPHOCYTES # (AUTO) 1.5 X10'3 (1.1-4.8); LYMPHOCYTES % (AUTO) 12.7 % (21-51); MEAN CORPUSCULAR HEMOGLOBIN 29.6 PG (27.0-31.0); MEAN CORPUSCULAR HGB CONC 32.9 % (33.0-36.5); MEAN PLATELET VOLUME 8.8 FL (7.4-10.4); MONOCYTES # (AUTO) 0.9 X10'3 (0-0.9); MONOCYTES % (AUTO) 7.8 % (2-12); NEUTROPHILS # (AUTO) 9.2 X10'3 (1.8-7.7); PLATELET COUNT 266 X10'3 (140-440); RED BLOOD COUNT 4.27 X10'6 (4.70-6.10); RED CELL DISTRIBUTION WIDTH 12.8 % (11.5-14.5); WHITE BLOOD COUNT 11.9 X10'3 (4.5-11.0)
[2018-04-14 05:36] LABS: ALANINE AMINOTRANSFERASE 55 U/L (12-78); ALBUMIN 2.2 G/DL (3.4-5.0); ALBUMIN/GLOBULIN RATIO 0.8 (1.1-1.5); ALKALINE PHOSPHATASE 33 IU/L (46-116); ANION GAP 8 (8-16); ASPARTATE AMINO TRANSFERASE 14 U/L (10-37); BILIRUBIN,TOTAL 0.2 MG/DL (0.1-1.0); BLOOD UREA NITROGEN 33 MG/DL (7-18); BUN/CREATININE RATIO 35.9 (5.4-32.0); CALCIUM 7.9 MG/DL (8.5-10.1); CHLORIDE 104 MMOL/L (99-107); CREATININE 0.92 MG/DL (0.60-1.10); GLUCOSE 103 MG/DL (70-104); MAGNESIUM 2.1 MG/DL (1.5-2.4); PHOSPHORUS 2.3 MG/DL (2.3-4.5); POTASSIUM 3.3 MMOL/L (3.5-5.1); SODIUM 141 MMOL/L (135-145); TOTAL CARBON DIOXIDE 29.5 MMOL/L (24-32); TOTAL PROTEIN 4.9 G/DL (6.4-8.2); eGFR 87 ML/MIN
[2018-04-14 06:00] VITALS: BP 126/75
[2018-04-14] MEDS: lactose-reduced food (Ensure High Protein) 237ml bottle PO SCH ×2 (08:00→14:17)
[2018-04-14] MEDS: normal saline 1000ml 1,000 ML IV SCH (09:35)
[2018-04-14] MEDS: lactobacillus rhamnosus 10,000 MMU CELLS/CAPSULE PO SCH (09:37)
[2018-04-14] MEDS: docusate sod 100mg capsule PO SCH (09:37)
[2018-04-14] MEDS: spironolactone 25 MG tablet PO SCH (09:37)
[2018-04-14] MEDS: predniSONE 20 mg tablet PO SCH (09:38)
[2018-04-14] MEDS: carVEDilol 12.5mg tablet PO SCH (09:38)
[2018-04-14] MEDS: aspirin 81mg tab.chew PO SCH (09:39)
[2018-04-14] MEDS: lisinopril 20mg tablet PO SCH (09:39)
[2018-04-14] MEDS: enoxaparin 40mg/0.4ml syringe SQ SCH (09:40)
[2018-04-14] MEDS: furosemide 20 MG/2 ML vial IV SCH (09:40)
[2018-04-14] MEDS: pyridostigmine br 60mg tablet PO SCH ×2 (09:47→14:17)
[2018-04-14 11:00] VITALS: BP 112/83
[2018-04-14] MEDS: potassium Cl 20 mEq SR tablet PO PRN (11:18)
[2018-04-14] MEDS ORDERED: PYRI60TA PO (12:24)
[2018-04-14] MEDS ORDERED: PRED20TA PO (12:24)
[2018-04-18 06:08] LABS: ACHR MODULATING ANTIBODIES <12 % (0-20)
== END 2018-04-14 15:35 | disposition home or self-care (01) | DRG 56 ==
LOC: ER 13:14 → ED HOLD 22:09 → PCU 3S 23:11
PROVIDERS: ADMIT Family Medicine; ATTEND Internal Medicine
PROC: 5A09457 Assistance with Respiratory Ventilation, 24-96 Consecutive Hours, Continuous Positive Airway Pressure (ICD-10-PCS; 2018-04-01)
PROC: B32T1ZZ Computerized Tomography (CT Scan) of Left Pulmonary Artery using Low Osmolar Contrast (ICD-10-PCS; principal; 2018-04-04)
PROC: B3201ZZ Computerized Tomography (CT Scan) of Thoracic Aorta using Low Osmolar Contrast (ICD-10-PCS; 2018-04-04)
PROC: B32S1ZZ Computerized Tomography (CT Scan) of Right Pulmonary Artery using Low Osmolar Contrast (ICD-10-PCS; 2018-04-04)
PROC: 5A09457 Assistance with Respiratory Ventilation, 24-96 Consecutive Hours, Continuous Positive Airway Pressure (ICD-10-PCS; 2018-04-04)
PROC: 5A09457 Assistance with Respiratory Ventilation, 24-96 Consecutive Hours, Continuous Positive Airway Pressure (ICD-10-PCS; 2018-04-05)
PROC: 5A09457 Assistance with Respiratory Ventilation, 24-96 Consecutive Hours, Continuous Positive Airway Pressure (ICD-10-PCS; 2018-04-07)
DX: G70.01 Myasthenia gravis with (acute) exacerbation (principal); I50.23 Acute on chronic systolic (congestive) heart failure; E43 Unspecified severe protein-calorie malnutrition; J96.21 Acute and chronic respiratory failure with hypoxia; J96.22 Acute and chronic respiratory failure with hypercapnia; N17.9 Acute kidney failure, unspecified; E87.2 Acidosis; I13.0 Hypertensive heart and chronic kidney disease with heart failure and stage 1 through stage 4 chronic kidney disease, or unspecified chronic kidney disease; I16.1 Hypertensive emergency; I42.9 Cardiomyopathy, unspecified; E04.2 Nontoxic multinodular goiter; E78.5 Hyperlipidemia, unspecified; E87.6 Hypokalemia; N18.3 Chronic kidney disease, stage 3 (moderate); F32.9 Major depressive disorder, single episode, unspecified; F41.9 Anxiety disorder, unspecified; Z99.81 Dependence on supplemental oxygen; Z79.82 Long term (current) use of aspirin; Z79.899 Other long term (current) drug therapy; Z87.01 Personal history of pneumonia (recurrent); Z68.30 Body mass index [BMI] 30.0-30.9, adult
CPT/HCPCS: 36415; 36600; 70450; 70544; 70551; 71045; 71275; 76536; 76700; 80053; 80061; 80305; 81001; 82085; 82550; 82803; 83036; 83519; 83605; 83690; 83735; 83880; 84100; 84132; 84145; 84238; 84439; 84443; 84484; 85018; 85025; 85379; 85610; 85651; 85730; 86038; 86255; 87040; 87070; 93005; 93308; 94150; 94640; 94660; 94760; 96374; 97110; 97116; 97162; 97530; 99285; G0378; J0360; J1650; J1940; J1956; J2930; J3490; J7030; J7512; Q0163; Q9967

== ENCOUNTER 2018-05-30 13:25 | Inpatient (IN) | payer BC, OTHER ==
[~2018-05-30] VITALS: Ht 182.9 cm; Wt 98.0 kg
[~2018-05-30 13:25] MED LIST changes: +ATOR20TA PO; -ATOR20TA66 PO; +POTA10TA19 PO; +PRED20TA PO; +PYRI60TA PO; +SPIR25TA5 PO; +TRAZ-218 PO; -TRAZ150T78 PO
[2018-05-30] MEDS ORDERED: normal saline 1000ML IV soln IVB ONE (14:10)
[2018-05-30 14:36] LABS: BASOPHILS % (AUTO) 0.3 % (0-1); EOSINOPHILS # (AUTO) 0.2 X10'3 (0-0.9); EOSINOPHILS % (AUTO) 1.5 % (0-6); HEMATOCRIT 38.9 % (42.0-52.0); HEMOGLOBIN 13.3 g/dl (14.0-17.9); LYMPHOCYTES # (AUTO) 0.9 X10'3 (1.1-4.8); LYMPHOCYTES % (AUTO) 9.1 % (21-51); MEAN CORPUSCULAR HEMOGLOBIN 29.4 PG (27.0-31.0); MEAN CORPUSCULAR VOLUME 86.3 FL (78-98); MEAN PLATELET VOLUME 7.7 FL (7.4-10.4); MONOCYTES # (AUTO) 0.2 X10'3 (0-0.9); NEUTROPHILS # (AUTO) 8.5 X10'3 (1.8-7.7); NEUTROPHILS % (AUTO) 87.1 % (42-75); PLATELET COUNT 221 X10'3 (140-440); RED BLOOD COUNT 4.51 X10'6 (4.70-6.10); RED CELL DISTRIBUTION WIDTH 14.4 % (11.5-14.5); WHITE BLOOD COUNT 9.8 X10'3 (4.5-11.0)
[2018-05-30 14:45] LABS: PROTHROMBIN TIME 10.2 SECONDS (9.0-12.0)
[2018-05-30 14:48] LABS: ALANINE AMINOTRANSFERASE 45 U/L (12-78); ALKALINE PHOSPHATASE 35 IU/L (46-116); ANION GAP 8 (8-16); ASPARTATE AMINO TRANSFERASE 15 U/L (10-37); BILIRUBIN,TOTAL 0.5 MG/DL (0.1-1.0); BLOOD UREA NITROGEN 27 MG/DL (7-18); BUN/CREATININE RATIO 19.7 (5.4-32.0); CALCIUM 8.4 MG/DL (8.5-10.1); CHLORIDE 105 MMOL/L (99-107); CREATININE 1.37 MG/DL (0.60-1.10); GLUCOSE 118 MG/DL (70-104); POTASSIUM 3.7 MMOL/L (3.5-5.1); SODIUM 143 MMOL/L (135-145); TOTAL PROTEIN 6.1 G/DL (6.4-8.2); eGFR 55 ML/MIN
[2018-05-30 14:54] LABS: MAGNESIUM 1.9 MG/DL (1.5-2.4)
[2018-05-30] MEDS ORDERED: enoxaparin 100mg/ml syringe SUBCUT ONE (16:00)
[2018-05-30] MEDS ORDERED: POTA20TA19 PO (16:00)
[2018-05-30] MEDS ORDERED: PRED20TA PO (16:01)
[2018-05-30] MEDS ORDERED: PYRI60TA PO (16:02)
[2018-05-30] MEDS ORDERED: LISI-600 PO (16:02)
[2018-05-30] MEDS ORDERED: CARV12.5 PO (16:03)
[2018-05-30] MEDS ORDERED: SPIR25TA5 PO (16:03)
[2018-05-30] MEDS ORDERED: ATOR10TA PO (16:04)
[2018-05-30] MEDS ORDERED: FURO-149 PO (16:04)
[2018-05-30] MEDS ORDERED: enoxaparin 30mg/0.3ml syringe SUBCUT ONE (16:05)
[2018-05-30] MEDS ORDERED: enoxaparin 60mg/0.6ml syringe SUBCUT ONE (16:05)
[2018-05-30] MEDS ORDERED: MELA3TAB PO (16:05)
[2018-05-30] MEDS ORDERED: magnesium 2GM in 50ml NS 50 ML IV PRN (16:50)
[2018-05-30] MEDS ORDERED: potassium Cl 40MEQ/NS 500ml 500 ML IV PRN ×2 (16:50)
[2018-05-30] MEDS ORDERED: acetaminophen 325mg tablet PO PRN ×2 (16:50)
[2018-05-30] MEDS ORDERED: potassium Cl 20 mEq SR tablet PO PRN (16:50)
[2018-05-30] MEDS ORDERED: ondansetron/PF 4mg/2ml inj IV PRN (16:50)
[2018-05-30] MEDS ORDERED: mag hydrox/Alum hydrox/simeth 30ml oral suspension PO PRN (16:50)
[2018-05-30] MEDS ORDERED: magnesium 4gm in 100ml NS 100 ML IV PRN (16:50)
[2018-05-30] MEDS ORDERED: magnesium hydroxide 30ml (MOM) UD suspension PO PRN (16:50)
[2018-05-30] MEDS ORDERED: magnesium Cl slow-release 64mg tablet PO PRN (16:50)
[2018-05-30] MEDS ORDERED: Melatonin 3mg tablet PO PRN (19:40)
[2018-05-30] MEDS ORDERED: enoxaparin 100mg/ml syringe SQ SCH (20:00)
[2018-05-30 20:30] VITALS: BP 128/90
--- NOTE | 2018-05-30 20:30 | NUR ---
Patient arrived on unit via gurney from ED after receiving report from Racheal HINOJOSA. Patient able to ambulate from [facility] to be with minimal assistance. Vitals taken placed on residential monitor. Patient on room air, belongings accompanied, at bedside.
[2018-05-30] MEDS: carVEDilol 12.5mg tablet PO SCH (20:32)
[2018-05-30] MEDS: pyridostigmine br 60mg tablet PO SCH (20:53)
[2018-05-30] MEDS ORDERED: Melatonin 3mg tablet PO SCH (21:00)
--- NOTE | 2018-05-30 21:04 | NUR ---
PAGER ID: [phone] MESSAGE: Marleni HINOJOSA ext [phone] Homar Harden Admitted for new onset Afib Continue home medication 3mg melatonin HS for sleep?
[2018-05-30 23:00] VITALS: BP 116/67
[2018-05-31 02:35] LABS: BASOPHILS # (AUTO) 0.1 X10'3 (0-0.2); BASOPHILS % (AUTO) 0.6 % (0-1); EOSINOPHILS % (AUTO) 0.4 % (0-6); HEMATOCRIT 37.1 % (42.0-52.0); HEMOGLOBIN 12.7 g/dl (14.0-17.9); LYMPHOCYTES # (AUTO) 1.9 X10'3 (1.1-4.8); LYMPHOCYTES % (AUTO) 20.1 % (21-51); MEAN CORPUSCULAR HEMOGLOBIN 29.7 PG (27.0-31.0); MEAN CORPUSCULAR HGB CONC 34.3 g/dL (33.0-36.5); MEAN CORPUSCULAR VOLUME 86.4 FL (78-98); MEAN PLATELET VOLUME 7.4 FL (7.4-10.4); MONOCYTES # (AUTO) 0.7 X10'3 (0-0.9); MONOCYTES % (AUTO) 7.6 % (2-12); NEUTROPHILS # (AUTO) 6.8 X10'3 (1.8-7.7); NEUTROPHILS % (AUTO) 71.3 % (42-75); PLATELET COUNT 203 X10'3 (140-440); RED BLOOD COUNT 4.29 X10'6 (4.70-6.10); RED CELL DISTRIBUTION WIDTH 14.4 % (11.5-14.5); WHITE BLOOD COUNT 9.6 X10'3 (4.5-11.0)
[2018-05-31 02:48] LABS: ALBUMIN 2.7 G/DL (3.4-5.0); ANION GAP 10 (8-16); BLOOD UREA NITROGEN 25 MG/DL (7-18); CALCIUM 8.4 MG/DL (8.5-10.1); CHLORIDE 105 MMOL/L (99-107); CREATININE 1.39 MG/DL (0.60-1.10); GLUCOSE 109 MG/DL (70-104); MAGNESIUM 2.1 MG/DL (1.5-2.4); POTASSIUM 3.1 MMOL/L (3.5-5.1); SODIUM 144 MMOL/L (135-145); TOTAL CARBON DIOXIDE 29.1 MMOL/L (24-32); eGFR 54 ML/MIN
[2018-05-31 03:00] VITALS: BP 129/98
--- NOTE | 2018-05-31 06:16 | NUR ---
Problems reprioritized. Patient report given, questions answered & plan of care reviewed with Nina HINOJOSA.
--- NOTE | 2018-05-31 06:36 | NUR ---
Patient in room PCU 3027. I have received report from Marleni HINOJOSA and had the opportunity to ask questions and assume patient care.
[2018-05-31 07:00] VITALS: BP 137/93
[2018-05-31] MEDS: pyridostigmine br 60mg tablet PO SCH ×2 (07:49→12:43)
[2018-05-31] MEDS: carVEDilol 12.5mg tablet PO SCH (07:49)
[2018-05-31] MEDS: potassium Cl 20 mEq SR tablet PO PRN ×2 (07:49→12:43)
[2018-05-31] MEDS ORDERED: predniSONE 20 mg tablet PO SCH (08:00)
[2018-05-31] MEDS ORDERED: atorvastatin 10mg tablet PO SCH (08:00)
[2018-05-31] MEDS ORDERED: K and/or MAG REPLACEMENT MC SCH (08:00)
[2018-05-31] MEDS ORDERED: enoxaparin 100mg/ml syringe SQ SCH (08:00)
[2018-05-31 11:00] VITALS: BP 102/64
--- NOTE | 2018-05-31 12:56 | NUR ---
PAGER ID: [phone] MESSAGE: Bharath [id number]. Pt walked 300 ft with walker, HR was low 100s, tolerated well. Nina [id number]
--- NOTE | 2018-05-31 13:03 | NUR ---
PAGER ID: [phone] MESSAGE: [id number]. Pt is asking about having an Echo due to [facility]. Nina [id number]
[2018-05-31 15:00] VITALS: BP 104/66
--- NOTE | 2018-05-31 16:19 | NUR ---
PAGER ID: [phone] MESSAGE: Bharath [id number]. Pt is requesting lab slip for follow up labs. Concerned that [facility] will not be able to order labs within the timeline that was discussed. Nina [phone]
[2018-05-31] MEDS ORDERED: APIX5TAB3 PO (16:25)
--- NOTE | 2018-05-31 18:12 | NUR ---
Pt discharged at 1805. PIV and telemetry were removed, all belongings sent with patient. Discharge packet and patient education reviewed before signing. Pt was wheeled down by RN and left via private vehicle with .
[2018-05-31] MEDS ORDERED: apixaban 5mg tablet PO SCH (20:00)
== END 2018-05-31 18:05 | disposition home or self-care (01) | DRG 683 ==
LOC: ER 13:26 → ED HOLD 16:47 → PCU 3S 19:15
PROVIDERS: ADMIT Hospitalist; ATTEND Hospitalist
DX: N17.9 Acute kidney failure, unspecified (principal); I13.0 Hypertensive heart and chronic kidney disease with heart failure and stage 1 through stage 4 chronic kidney disease, or unspecified chronic kidney disease; I48.91 Unspecified atrial fibrillation; N18.9 Chronic kidney disease, unspecified; I50.9 Heart failure, unspecified; E78.00 Pure hypercholesterolemia, unspecified; G70.00 Myasthenia gravis without (acute) exacerbation; I95.9 Hypotension, unspecified; Z79.899 Other long term (current) drug therapy
CPT/HCPCS: 36415; 71045; 80048; 80053; 83735; 83880; 84484; 85025; 85610; 87070; 93005; 96372; 99285; G0378; J1650; J7512

== ENCOUNTER 2018-10-05 13:07 | Outpatient (CLI) | payer OTHER ==
[~2018-10-05 13:07] MED LIST changes: +APIX5TAB3 PO; +ATOR10TA PO; -ATOR20TA PO; -CARV-50 PO; +CARV12.5 PO; -FURO80TA87 PO; -LISI40TA4 PO; -POTA10TA19 PO; -RISP0.5T3 PO; -SPIR25TA5 PO; -TRAZ-218 PO; -VENL75CA61 PO
== END 2018-10-05 23:59 | disposition home or self-care (01) ==
LOC: RAD 13:07
PROVIDERS: ATTEND Family Medicine
DX: R13.10 Dysphagia, unspecified (principal); I11.0 Hypertensive heart disease with heart failure; I50.9 Heart failure, unspecified
CPT/HCPCS: 74230

== ENCOUNTER 2019-01-13 20:34 | Inpatient (IN) | payer BC, OTHER ==
[~2019-01-13] VITALS: Ht 182.9 cm; Wt 101.8 kg
[2019-01-13] MEDS: pyridostigmine br 60mg tablet PO SCH (01:00)
[2019-01-13] MEDS: sodium chloride 0.45% 1,000 ML IV SCH (01:00)
[~2019-01-13 20:34] MED LIST changes: -MELA3TAB PO; +MELA3TAB64 PO
[2019-01-13] MEDS ORDERED: nitroGLYCERIN-Tridil 50MG/D5W 250 ML IV PRN ×2 (20:50→22:35)
[2019-01-13] MEDS ORDERED: levoFLOXACIN-Levaquin 750MG/D5 150 ML IV ONE (21:00)
[2019-01-13 21:11] LABS: ABG BASE EXCESS 2.7 mmol/L (-2.0-3.0); ABG HCO3 29.8 mmol/L (22.0-26.0); ABG OXYGEN SATURATION 94.5 % (95-98); ABG PCO2 (T) 54.4 mmHg (35.0-45.0); ABG PH (T) 7.356 (7.350-7.450); ABG PO2 (T) 75.6 mmHg (83-108); ALLEN'S TEST Positive; FCOHb 0.8 % (0.5-1.5); FMetHb 0.4 % (0.3-1.12); FO2Hb 93.4 % (94-100); PATIENT TEMPERATURE 36.9; RESPIRATORY RATE 14 b/min; TOTAL HEMOGLOBIN 16.9 G/dl (14.0-17.9)
[2019-01-13 21:16] LABS: BASOPHILS # (AUTO) 0.1 X10'3 (0-0.2); NEUTROPHILS # (AUTO) 6.7 X10'3 (1.8-7.7)
[2019-01-13 21:18] LABS: BASOPHILS % (AUTO) 0.6 % (0-1); EOSINOPHILS # (AUTO) 2.8 X10'3 (0-0.9); EOSINOPHILS % (AUTO) 20.3 % (0-6); HEMATOCRIT 49.1 % (42.0-52.0); HEMOGLOBIN 16.9 g/dl (14.0-17.9); LYMPHOCYTES # (AUTO) 3.1 X10'3 (1.1-4.8); LYMPHOCYTES % (AUTO) 22.8 % (21-51); MEAN CORPUSCULAR HEMOGLOBIN 30.5 PG (27.0-31.0); MEAN CORPUSCULAR HGB CONC 34.4 g/dL (33.0-36.5); MEAN CORPUSCULAR VOLUME 88.5 FL (78-98); MEAN PLATELET VOLUME 8.9 FL (7.4-10.4); MONOCYTES % (AUTO) 7.4 % (2-12); NEUTROPHILS % (AUTO) 48.9 % (42-75); PLATELET COUNT 334 X10'3 (140-440); RED BLOOD COUNT 5.55 X10'6 (4.70-6.10); WHITE BLOOD COUNT 13.7 X10'3 (4.5-11.0)
[2019-01-13 21:27] LABS: PARTIAL THROMBOPLASTIN TIME 30 SECONDS (22-32)
--- NOTE | 2019-01-13 21:27 | NUR ---
RELIEVING RN FOR BREAK, PT IS RESTING QUIETLY ON GURNEY, HIGH FOWLERS, ON BIPAP, KHADRA WELL, PT SAID HE IS FEELING BETTER, FAMILY AT BEDSIDE
[2019-01-13] MEDS ORDERED: methylPREDNISolone sod succ 125mg/2ml vial IV ONE (21:30)
[2019-01-13 21:35] LABS: ALANINE AMINOTRANSFERASE 25 U/L (12-78); ALBUMIN 3.7 G/DL (3.4-5.0); ALBUMIN/GLOBULIN RATIO 0.9 (1.1-1.5); ALKALINE PHOSPHATASE 69 IU/L (46-116); ANION GAP 10 (8-16); ASPARTATE AMINO TRANSFERASE 16 U/L (10-37); BILIRUBIN,TOTAL 0.6 MG/DL (0.1-1.0); BLOOD UREA NITROGEN 10 MG/DL (7-18); BUN/CREATININE RATIO 7.8 (5.4-32.0); CALCIUM 8.4 MG/DL (8.5-10.1); CHLORIDE 106 MMOL/L (99-107); CREATININE 1.28 MG/DL (0.60-1.10); GLUCOSE 149 MG/DL (70-104); POTASSIUM 3.1 MMOL/L (3.5-5.1); SODIUM 146 MMOL/L (135-145); TOTAL CARBON DIOXIDE 29.7 MMOL/L (24-32); TOTAL PROTEIN 7.7 G/DL (6.4-8.2); eGFR 59 ML/MIN
[2019-01-13 21:50] LABS: EOSINOPHILS % (MANUAL) 19 % (0-6); LYMPHOCYTES % (MANUAL) 24 % (21-51); MONOCYTES % (MANUAL) 8 % (2-12); NEUTROPHILS % (MANUAL) 49 % (42-75); PLATELET ESTIMATE NORMAL; TOTAL CELLS COUNTED 100
[2019-01-13] MEDS ORDERED: potassium 10mEq/100ml NS w/LIDOcaine (10mg/bag) IV SCH (22:10)
[2019-01-13] MEDS: potassium Cl 10 mEq/100mL bag IV SCH ×2 (22:20→23:29)
[2019-01-13 22:25] LABS: ABG BASE EXCESS 1.3 mmol/L (-2.0-3.0); ABG HCO3 26.7 mmol/L (22.0-26.0); ABG OXYGEN SATURATION 93.1 % (95-98); ABG PCO2 (T) 44.7 mmHg (35.0-45.0); ABG PH (T) 7.394 (7.350-7.450); ABG PO2 (T) 68.7 mmHg (83-108); ALLEN'S TEST Positive; FCOHb 0.4 % (0.5-1.5); FMetHb 0.3 % (0.3-1.12); FO2Hb 92.4 % (94-100); MINUTE VOLUME 23 L/min; RESPIRATORY RATE 14 b/min; RESPIRATORY RATE (OBSERVED) 36 b/min; TOTAL HEMOGLOBIN 15.8 G/dl (14.0-17.9)
[2019-01-13] MEDS ORDERED: POTA10CA44 PO (22:25)
[2019-01-13] MEDS ORDERED: LISI-604 PO (22:25)
[2019-01-13] MEDS ORDERED: ATOR20TA PO (22:25)
[2019-01-13] MEDS ORDERED: morphine 4 MG/ML inj SYRINge IV PRN (22:35)
[2019-01-13] MEDS ORDERED: morphine 2 MG/ML inj. syringe IV PRN (22:35)
[2019-01-13] MEDS ORDERED: acetaminophen 325mg tablet PO PRN (22:35)
[2019-01-13] MEDS ORDERED: acetaminophen 650mg rectal suppository RC PRN (22:35)
[2019-01-13] MEDS ORDERED: magnesium hydroxide 30ml (MOM) UD suspension PO PRN (22:35)
[2019-01-13] MEDS ORDERED: ondansetron/PF 4mg/2ml inj IV PRN (22:35)
[2019-01-13] MEDS ORDERED: magnesium Cl slow-release 64mg tablet PO PRN (22:35)
[2019-01-13 23:35] LABS: CLARITY,URINE CLEAR (Clear); COLOR,URINE YELLOW (Yellow); GLUCOSE, URINE NEGATIVE (Neg); KETONES,URINE NEGATIVE (Neg); LEUKOCYTE ESTERASE ,URINE NEGATIVE (Neg); NITRITES, URINE NEGATIVE (Neg); OCCULT BLOOD,URINE NEGATIVE (Neg); PROTEIN,URINE 100 mg/dl (Neg); UROBILINOGEN,URINE 0.2 E.U/dL (0.2-1.0)
[2019-01-13 23:36] LABS: UA COLLECTION TYPE CLN CATCH MIDSTREAM
[2019-01-13 23:40] LABS: BACTERIA,URINE NONE SEEN /HPF (Neg); MUCUS STRANDS FEW /LPF (Neg); RBC,URINE NONE SEEN /HPF (0-2); SQUAMOUS EPITHELIAL CELL,UR FEW /LPF (FEW); WBC,URINE NONE SEEN /HPF (0-4)
[2019-01-13 23:49] LABS: URINE AMPHETAMINE SCREEN NEGATIVE (Neg); URINE BARBITUATE SCREEN NEGATIVE (Neg); URINE BENZODIAZEPINES SCREEN NEGATIVE (Neg); URINE CANNABINOID SCREEN NEGATIVE (Neg); URINE COCAINE SCREEN NEGATIVE (Neg); URINE METHADONE SCREEN NEGATIVE (Neg); URINE OPIATE SCREEN POSITIVE (Neg); URINE PHENCYCLIDINE SCREEN NEGATIVE (Neg)
[2019-01-14] VITALS (22 sets, daily range): BP systolic 118–166; BP diastolic 75–100
--- NOTE | 2019-01-14 01:44 | NUR ---
0100..Assessment, pt states feeling better on Bipap. Denies pain, at bedside.
--- NOTE | 2019-01-14 01:44 | NUR ---
0030..Patient in room ICU 2046. I have received report from CARDIAC NURSE SPECIALIST and had the opportunity to ask questions and assume patient care.
[2019-01-14 05:05] LABS: ABG HCO3 25.8 mmol/L (22.0-26.0); ABG OXYGEN SATURATION 95.1 % (95-98); ABG PCO2 (T) 42.1 mmHg (35.0-45.0); ABG PH (T) 7.406 (7.350-7.450); ABG PO2 (T) 75.1 mmHg (83-108); ALLEN'S TEST Positive; FCOHb 0.3 % (0.5-1.5); FMetHb 0.3 % (0.3-1.12); FO2Hb 94.5 % (94-100); RESPIRATORY RATE 14 b/min; RESPIRATORY RATE (OBSERVED) 16 b/min; TOTAL HEMOGLOBIN 15.4 G/dl (14.0-17.9)
--- NOTE | 2019-01-14 06:20 | NUR ---
0620..Problems reprioritized. Patient report given, questions answered & plan of care reviewed with Frank HINOJOSA.
--- NOTE | 2019-01-14 06:26 | NUR ---
Patient in room ICU 2046. I have received report from ASHISH Murillo and had the opportunity to ask questions and assume patient care.
[2019-01-14 06:41] LABS: BASOPHILS % (AUTO) 0.1 % (0-1); EOSINOPHILS % (AUTO) 0.4 % (0-6); HEMOGLOBIN 14.8 g/dl (14.0-17.9); LYMPHOCYTES # (AUTO) 0.7 X10'3 (1.1-4.8); LYMPHOCYTES % (AUTO) 12.2 % (21-51); MEAN CORPUSCULAR HGB CONC 34.5 g/dL (33.0-36.5); MEAN CORPUSCULAR VOLUME 87.1 FL (78-98); MEAN PLATELET VOLUME 8.7 FL (7.4-10.4); MONOCYTES # (AUTO) 0.1 X10'3 (0-0.9); MONOCYTES % (AUTO) 2.1 % (2-12); NEUTROPHILS # (AUTO) 5.2 X10'3 (1.8-7.7); NEUTROPHILS % (AUTO) 85.2 % (42-75); PLATELET COUNT 257 X10'3 (140-440); RED BLOOD COUNT 4.93 X10'6 (4.70-6.10); RED CELL DISTRIBUTION WIDTH 14.2 % (11.5-14.5); WHITE BLOOD COUNT 6.1 X10'3 (4.5-11.0)
[2019-01-14 06:47] LABS: PARTIAL THROMBOPLASTIN TIME 32 SECONDS (22-32)
[2019-01-14 07:18] LABS: ALANINE AMINOTRANSFERASE 21 U/L (12-78); ALBUMIN 3.1 G/DL (3.4-5.0); ALBUMIN/GLOBULIN RATIO 0.9 (1.1-1.5); ALKALINE PHOSPHATASE 56 IU/L (46-116); ANION GAP 9 (8-16); ASPARTATE AMINO TRANSFERASE 13 U/L (10-37); BILIRUBIN,TOTAL 0.6 MG/DL (0.1-1.0); BLOOD UREA NITROGEN 12 MG/DL (7-18); CALCIUM 8.4 MG/DL (8.5-10.1); CHLORIDE 108 MMOL/L (99-107); GLUCOSE 158 MG/DL (70-104); PHOSPHORUS 1.7 MG/DL (2.3-4.5); POTASSIUM 3.3 MMOL/L (3.5-5.1); SODIUM 144 MMOL/L (135-145); TOTAL CARBON DIOXIDE 26.7 MMOL/L (24-32); TOTAL PROTEIN 6.7 G/DL (6.4-8.2); TROPONIN I < 0.04 NG/ML (0.0-0.05); eGFR 64 ML/MIN
[2019-01-14] MEDS ORDERED: methylPREDNISolone sod succ 125mg/2ml vial IV SCH (08:00)
[2019-01-14] MEDS: apixaban 5mg tablet PO SCH ×2 (08:45→20:27)
[2019-01-14] MEDS: pantoprazole 40 MG vial IV SCH (08:45)
[2019-01-14] MEDS: docusate sod 100mg capsule PO SCH ×2 (08:45→20:26)
[2019-01-14] MEDS: carVEDilol 12.5mg tablet PO SCH ×2 (08:46→20:26)
[2019-01-14] MEDS: potassium Cl 20 mEq SR tablet PO PRN ×3 (08:46→17:18)
[2019-01-14] MEDS: pyridostigmine br 60mg tablet PO SCH ×4 (08:46→20:35)
[2019-01-14] MEDS: lisinopril 10 MG tablet PO SCH (08:46)
[2019-01-14] MEDS: acetaminophen 325mg tablet PO PRN (09:18)
[2019-01-14] MEDS: Neutra Phos packet PO PRN ×2 (09:18→17:18)
[2019-01-14] MEDS: sodium chloride 0.45% 1,000 ML IV SCH ×2 (11:43→15:15)
[2019-01-14] MEDS: methylPREDNISolone sod succ 125mg/2ml vial IV SCH ×2 (13:41→20:29)
--- NOTE | 2019-01-14 18:24 | NUR ---
Problems reprioritized. Patient report given, questions answered & plan of care reviewed with ASHISH Rossi.
--- NOTE | 2019-01-14 18:25 | NUR ---
Patient in room ICU 2046. I have received report from ASHISH Win and had the opportunity to ask questions and assume patient care
[2019-01-14] MEDS: levoFLOXACIN-Levaquin 750MG/D5 150 ML IV SCH (20:26)
[2019-01-14] MEDS: atorvastatin 20mg tablet PO SCH (20:26)
[2019-01-14] MEDS: lactobacillus rhamnosus 10,000 MMU CELLS/CAPSULE PO SCH (20:27)
[2019-01-14] MEDS: hydrALAZINE 20mg/ml inj. IV PRN (22:57)
[2019-01-14] MEDS: ipratropium/albuterol 3ml nebule NEB PRN (23:01)
[2019-01-15] VITALS (22 sets, daily range): BP systolic 136–164; BP diastolic 85–105
--- NOTE | 2019-01-15 05:00 | NUR ---
Patient in bed resting at this time and in no apparent distress. N/o of hydralazine 10mg prn q6h received from RUDOLPH Nguyen for elevated BP. Medication was administered and was effective upon reassessment as patient's BP dropped to 144/87 mmhg from 160/100 mmhg. Patient also tolerating all other meds and infusion well with no sign of fluid overload or complications. Care needs will continue to be attended to, and safety measures in place
[2019-01-15] MEDS: hydrALAZINE 20mg/ml inj. IV PRN ×2 (05:21→18:05)
[2019-01-15] MEDS: sodium chloride 0.45% 1,000 ML IV SCH (05:22)
[2019-01-15] MEDS: vancomycin/NS 1 GM ADD-VANTAGE 250 ML IV SCH ×2 (05:37→07:16)
--- NOTE | 2019-01-15 06:30 | NUR ---
Problems reprioritized. Patient report given, questions answered & plan of care reviewed with Candelaria RN.
--- NOTE | 2019-01-15 06:42 | NUR ---
Patient in room ICU 2046. I have received report from ASHISH Rossi and had the opportunity to ask questions and assume patient care. Pt is awake and alert. Introduced to new RN. Will continue to monitor.
[2019-01-15] MEDS: docusate sod 100mg capsule PO SCH ×2 (08:00→19:27)
[2019-01-15] MEDS: carVEDilol 12.5mg tablet PO SCH ×2 (08:00→19:27)
[2019-01-15] MEDS: pantoprazole 40 MG vial IV SCH (08:30)
[2019-01-15] MEDS: apixaban 5mg tablet PO SCH ×2 (08:30→19:26)
[2019-01-15] MEDS: lactobacillus rhamnosus 10,000 MMU CELLS/CAPSULE PO SCH ×2 (08:30→19:26)
[2019-01-15] MEDS: lisinopril 10 MG tablet PO SCH (08:30)
[2019-01-15] MEDS: prednisone 10mg tablet PO SCH (08:31)
[2019-01-15] MEDS: pyridostigmine br 60mg tablet PO SCH ×4 (08:31→21:20)
[2019-01-15 09:07] LABS: BASOPHILS % (AUTO) 0.1 % (0-1); EOSINOPHILS % (AUTO) 0 % (0-6); HEMATOCRIT 46.7 % (42.0-52.0); LYMPHOCYTES # (AUTO) 1.2 X10'3 (1.1-4.8); LYMPHOCYTES % (AUTO) 6.8 % (21-51); MEAN CORPUSCULAR HEMOGLOBIN 29.9 PG (27.0-31.0); MEAN CORPUSCULAR HGB CONC 34.2 g/dL (33.0-36.5); MEAN CORPUSCULAR VOLUME 87.4 FL (78-98); MEAN PLATELET VOLUME 8.9 FL (7.4-10.4); MONOCYTES # (AUTO) 0.9 X10'3 (0-0.9); NEUTROPHILS # (AUTO) 15.4 X10'3 (1.8-7.7); NEUTROPHILS % (AUTO) 88.1 % (42-75); PLATELET COUNT 291 X10'3 (140-440); RED BLOOD COUNT 5.34 X10'6 (4.70-6.10); RED CELL DISTRIBUTION WIDTH 14.5 % (11.5-14.5); WHITE BLOOD COUNT 17.5 X10'3 (4.5-11.0)
[2019-01-15 09:24] LABS: PARTIAL THROMBOPLASTIN TIME 29 SECONDS (22-32)
[2019-01-15 09:39] LABS: ALANINE AMINOTRANSFERASE 17 U/L (12-78); ALBUMIN/GLOBULIN RATIO 0.8 (1.1-1.5); ALKALINE PHOSPHATASE 51 IU/L (46-116); ASPARTATE AMINO TRANSFERASE 8 U/L (10-37); BILIRUBIN,TOTAL 0.5 MG/DL (0.1-1.0); BLOOD UREA NITROGEN 15 MG/DL (7-18); BUN/CREATININE RATIO 13.4 (5.4-32.0); CALCIUM 8.3 MG/DL (8.5-10.1); CHLORIDE 109 MMOL/L (99-107); CREATININE 1.12 MG/DL (0.60-1.10); GLUCOSE 148 MG/DL (70-104); MAGNESIUM 1.9 MG/DL (1.5-2.4); PHOSPHORUS 2.5 MG/DL (2.3-4.5); POTASSIUM 3.1 MMOL/L (3.5-5.1); TOTAL CARBON DIOXIDE 25.4 MMOL/L (24-32); TOTAL PROTEIN 6.6 G/DL (6.4-8.2); eGFR 69 ML/MIN
[2019-01-15 09:42] LABS: ANION GAP 12 (8-16); SODIUM 146 MMOL/L (135-145)
--- NOTE | 2019-01-15 11:31 | NUR ---
Pt states his Coreg gives him insomnia. He refused the Coreg today, and requested to have it switched out or stopped. Dr Bedoya stated he will change it out.
[2019-01-15] MEDS: acetaminophen 325mg tablet PO PRN (15:18)
--- NOTE | 2019-01-15 16:22 | NUR ---
Pt BP at 158/104; 163/99 after retake. Nitro drip upped to 10mcg. Call placed to Dr Bedoya, he is aware and stated he will take care of it.
[2019-01-15] MEDS: amLODIPine 5mg tablet PO SCH (17:23)
--- NOTE | 2019-01-15 18:14 | NUR ---
Problems reprioritized. Patient report given, questions answered & plan of care reviewed with ASHISH Canada.
--- NOTE | 2019-01-15 18:30 | NUR ---
Patient in room ICU 2046. I have received report from ASHISH Gaona and had the opportunity to ask questions and assume patient care.
[2019-01-15] MEDS ORDERED: VANCOmycin 1250MG/NS 250ml Bag 250 ML IV SCH (20:00)
[2019-01-15] MEDS: levoFLOXACIN-Levaquin 750MG/D5 150 ML IV SCH (21:19)
[2019-01-15] MEDS: Melatonin 3mg tablet PO PRN ×2 (21:19)
[2019-01-15] MEDS: atorvastatin 20mg tablet PO SCH (21:19)
[2019-01-15] MEDS: potassium Cl 20 mEq SR tablet PO PRN (21:20)
[2019-01-16] VITALS (24 sets, daily range): BP systolic 115–161; BP diastolic 79–104
[2019-01-16] MEDS: sodium chloride 0.45% 1,000 ML IV SCH ×2 (00:36→16:16)
[2019-01-16] MEDS: potassium Cl 20 mEq SR tablet PO PRN ×4 (01:21→17:10)
[2019-01-16 05:22] LABS: PARTIAL THROMBOPLASTIN TIME 29 SECONDS (22-32)
[2019-01-16 05:27] LABS: ALANINE AMINOTRANSFERASE 18 U/L (12-78); ALBUMIN 2.8 G/DL (3.4-5.0); ALBUMIN/GLOBULIN RATIO 0.9 (1.1-1.5); ALKALINE PHOSPHATASE 47 IU/L (46-116); ANION GAP 8 (8-16); ASPARTATE AMINO TRANSFERASE 11 U/L (10-37); BILIRUBIN,TOTAL 0.4 MG/DL (0.1-1.0); BLOOD UREA NITROGEN 16 MG/DL (7-18); CALCIUM 7.8 MG/DL (8.5-10.1); CHLORIDE 110 MMOL/L (99-107); CREATININE 0.94 MG/DL (0.60-1.10); GLUCOSE 101 MG/DL (70-104); MAGNESIUM 1.9 MG/DL (1.5-2.4); PHOSPHORUS 3.1 MG/DL (2.3-4.5); SODIUM 147 MMOL/L (135-145); TOTAL CARBON DIOXIDE 29.1 MMOL/L (24-32); eGFR 85 ML/MIN
[2019-01-16 05:28] LABS: BASOPHILS % (AUTO) 0.1 % (0-1); EOSINOPHILS # (AUTO) 0.1 X10'3 (0-0.9); EOSINOPHILS % (AUTO) 0.5 % (0-6); HEMATOCRIT 43.4 % (42.0-52.0); LYMPHOCYTES # (AUTO) 1.9 X10'3 (1.1-4.8); LYMPHOCYTES % (AUTO) 16.7 % (21-51); MEAN CORPUSCULAR HEMOGLOBIN 30.2 PG (27.0-31.0); MEAN CORPUSCULAR HGB CONC 34.4 g/dL (33.0-36.5); MEAN CORPUSCULAR VOLUME 87.8 FL (78-98); MEAN PLATELET VOLUME 8.6 FL (7.4-10.4); MONOCYTES % (AUTO) 8.5 % (2-12); NEUTROPHILS # (AUTO) 8.3 X10'3 (1.8-7.7); NEUTROPHILS % (AUTO) 74.2 % (42-75); PLATELET COUNT 276 X10'3 (140-440); RED BLOOD COUNT 4.94 X10'6 (4.70-6.10); RED CELL DISTRIBUTION WIDTH 14.6 % (11.5-14.5); WHITE BLOOD COUNT 11.2 X10'3 (4.5-11.0)
[2019-01-16 05:32] LABS: POTASSIUM 2.7 MMOL/L (3.5-5.1)
--- NOTE | 2019-01-16 06:10 | NUR ---
Patient in room ICU 2046. I have received report from ASHISH [place] and had the opportunity to ask questions and assume patient care.
--- NOTE | 2019-01-16 06:14 | NUR ---
Problems reprioritized. Patient report given, questions answered & plan of care reviewed with ASHISH Asif.
[2019-01-16] MEDS: pantoprazole 40mg Tablet.DR PO SCH (07:18)
[2019-01-16] MEDS: lisinopril 10 MG tablet PO SCH (07:20)
[2019-01-16] MEDS: lactobacillus rhamnosus 10,000 MMU CELLS/CAPSULE PO SCH ×2 (07:20→19:30)
[2019-01-16] MEDS: prednisone 10mg tablet PO SCH (07:20)
[2019-01-16] MEDS: amLODIPine 5mg tablet PO SCH (07:20)
[2019-01-16] MEDS: apixaban 5mg tablet PO SCH ×2 (07:21→19:30)
[2019-01-16] MEDS: pyridostigmine br 60mg tablet PO SCH ×4 (07:21→20:48)
[2019-01-16] MEDS: carVEDilol 12.5mg tablet PO SCH ×2 (07:21→19:30)
[2019-01-16] MEDS: docusate sod 100mg capsule PO SCH ×2 (07:21→19:30)
[2019-01-16] MEDS: VANCOmycin 1250MG/NS 250ml Bag 250 ML IV SCH ×2 (07:26→16:15)
[2019-01-16] MEDS ORDERED: potassium Cl 20 mEq SR tablet PO SCH (08:00)
--- NOTE | 2019-01-16 10:30 | NUR ---
Made Dr. Brice aware that PCP has patient take K+ 40 mEq BID when his levels are low. Received orders to increase dose to K+ 40 mEq BID.
--- NOTE | 2019-01-16 10:45 | NUR ---
Patient BUE, chest and upper abdomen rash. Patient receives Vanco IV 1250mg/250ml. Pharmacy notified. Reassessed patient, rash has subsided.
--- NOTE | 2019-01-16 10:54 | NUR ---
[facility] med administration and documentation. I have reviewed and agree with all interventions, assessments performed and documented by Irena HINOJOSA.
--- NOTE | 2019-01-16 15:40 | NUR ---
Patient O2 saturations decrease with movement/activity, eating and talking. Multiple attempts to wean oxygen to 2 LPM, no success. Patient remains at 4 LPM via NC. Family has been at bedside throughout shift. Will continue to monitor.
--- NOTE | 2019-01-16 18:23 | NUR ---
Problems reprioritized. Patient report given, questions answered & plan of care reviewed with ASHISH Canada.
--- NOTE | 2019-01-16 18:38 | NUR ---
Patient in room ICU 2046. I have received report from ASHISH Asif and had the opportunity to ask questions and assume patient care.
[2019-01-16] MEDS: potassium Cl 20 mEq SR tablet PO SCH (19:30)
[2019-01-16] MEDS: ipratropium/albuterol 3ml nebule NEB PRN (20:30)
[2019-01-16] MEDS: atorvastatin 20mg tablet PO SCH (20:48)
[2019-01-16] MEDS: levoFLOXACIN-Levaquin 750MG/D5 150 ML IV SCH (20:48)
[2019-01-16] MEDS: Melatonin 3mg tablet PO PRN (20:48)
[2019-01-17] VITALS (18 sets, daily range): BP systolic 116–162; BP diastolic 82–102
[2019-01-17] MEDS: potassium Cl 20 mEq SR tablet PO PRN ×4 (00:05→17:30)
[2019-01-17] MEDS: VANCOmycin 1250MG/NS 250ml Bag 250 ML IV SCH ×2 (00:05→07:46)
[2019-01-17] MEDS: acetaminophen 325mg tablet PO PRN (02:18)
[2019-01-17 05:03] LABS: BASOPHILS % (AUTO) 0.4 % (0-1); EOSINOPHILS # (AUTO) 0.3 X10'3 (0-0.9); EOSINOPHILS % (AUTO) 4.3 % (0-6); HEMATOCRIT 42.9 % (42.0-52.0); LYMPHOCYTES # (AUTO) 1.9 X10'3 (1.1-4.8); MEAN CORPUSCULAR HEMOGLOBIN 30.8 PG (27.0-31.0); MEAN CORPUSCULAR HGB CONC 34.9 g/dL (33.0-36.5); MEAN CORPUSCULAR VOLUME 88.3 FL (78-98); MEAN PLATELET VOLUME 8.4 FL (7.4-10.4); MONOCYTES # (AUTO) 0.9 X10'3 (0-0.9); MONOCYTES % (AUTO) 10.8 % (2-12); NEUTROPHILS # (AUTO) 4.8 X10'3 (1.8-7.7); NEUTROPHILS % (AUTO) 60.5 % (42-75); PLATELET COUNT 245 X10'3 (140-440); RED BLOOD COUNT 4.85 X10'6 (4.70-6.10); RED CELL DISTRIBUTION WIDTH 14.3 % (11.5-14.5)
[2019-01-17 05:18] LABS: ALANINE AMINOTRANSFERASE 23 U/L (12-78); ALBUMIN 2.6 G/DL (3.4-5.0); ALBUMIN/GLOBULIN RATIO 0.8 (1.1-1.5); ALKALINE PHOSPHATASE 46 IU/L (46-116); ANION GAP 7 (8-16); ASPARTATE AMINO TRANSFERASE 14 U/L (10-37); BILIRUBIN,TOTAL 0.6 MG/DL (0.1-1.0); BLOOD UREA NITROGEN 15 MG/DL (7-18); BUN/CREATININE RATIO 15.2 (5.4-32.0); CALCIUM 7.8 MG/DL (8.5-10.1); CHLORIDE 109 MMOL/L (99-107); CREATININE 0.99 MG/DL (0.60-1.10); GLUCOSE 96 MG/DL (70-104); MAGNESIUM 1.8 MG/DL (1.5-2.4); POTASSIUM 3.1 MMOL/L (3.5-5.1); SODIUM 144 MMOL/L (135-145); TOTAL CARBON DIOXIDE 28.4 MMOL/L (24-32); TOTAL PROTEIN 5.8 G/DL (6.4-8.2); eGFR 80 ML/MIN
[2019-01-17 05:26] LABS: PARTIAL THROMBOPLASTIN TIME 30 SECONDS (22-32)
--- NOTE | 2019-01-17 06:05 | NUR ---
Patient in room ICU 2046. I have received report from ASHISH FERGUSON, and had the opportunity to ask questions and assume patient care.
[2019-01-17] MEDS: sodium chloride 0.45% 1,000 ML IV SCH (06:23)
--- NOTE | 2019-01-17 06:25 | NUR ---
Problems reprioritized. Patient report given, questions answered & plan of care reviewed with ASHISH Shields.
[2019-01-17] MEDS ORDERED: VANCOMYCIN LEVEL IV ONE (07:30)
[2019-01-17] MEDS: apixaban 5mg tablet PO SCH ×2 (07:44→20:56)
[2019-01-17] MEDS: prednisone 10mg tablet PO SCH (07:44)
[2019-01-17] MEDS: lactobacillus rhamnosus 10,000 MMU CELLS/CAPSULE PO SCH ×2 (07:44→20:56)
[2019-01-17] MEDS: pantoprazole 40mg Tablet.DR PO SCH (07:44)
[2019-01-17] MEDS: docusate sod 100mg capsule PO SCH ×2 (07:44→20:00)
[2019-01-17] MEDS: amLODIPine 5mg tablet PO SCH (07:44)
[2019-01-17] MEDS: potassium Cl 20 mEq SR tablet PO SCH ×2 (07:45→20:57)
[2019-01-17] MEDS: lisinopril 10 MG tablet PO SCH (07:45)
[2019-01-17] MEDS: carVEDilol 12.5mg tablet PO SCH ×2 (07:45→20:56)
[2019-01-17] MEDS: pyridostigmine br 60mg tablet PO SCH ×4 (07:48→20:57)
[2019-01-17] MEDS: ipratropium/albuterol 3ml nebule NEB SCH ×2 (15:24→21:08)
--- NOTE | 2019-01-17 16:06 | NUR ---
Patient in room ICU 2046. I have received report from Alyson HINOJOSA and had the opportunity to ask questions and assume patient care. Patient stable for being transferred to PCU in room 3028Z.
[2019-01-17] MEDS: vancomycin/NS 1 GM ADD-VANTAGE 250 ML IV SCH (16:14)
--- NOTE | 2019-01-17 16:45 | NUR ---
TRANSFERRED TO ROOM 3023C VIA WHEELCHAIR WITH ACCOMPANYING PATIENT AND RN. AOX4. NO ISSUES OR DISTRESS.
--- NOTE | 2019-01-17 16:55 | NUR ---
Patient arrived to the unit accompanied by ICU personnel. Vital signs obtained, telemetry monitoring continued, 2 RN skin check complete, belongings placed at the bedside, and patient oriented to the room and call light. Will continue to monitor.
--- NOTE | 2019-01-17 18:22 | NUR ---
Problems reprioritized. Patient report given, questions answered & plan of care reviewed with Clara HINOJOSA. Patient stable at time of report given.
--- NOTE | 2019-01-17 18:23 | NUR ---
[place] documentation: I have reviewed and agree with all interventions, assessments performed and documented by Radha HINOJOSA. [facility] Medication Administration: For this medication-pass time frame, all medication were reviewed, dispensed, administered and documented per hospital policy by Radha HINOJOSA.
--- NOTE | 2019-01-17 18:37 | NUR ---
Patient in room PCU 3023. I have received report from Janine HINOJOSA and had the opportunity to ask questions and assume patient care.
[2019-01-17] MEDS: atorvastatin 20mg tablet PO SCH (20:57)
[2019-01-17] MEDS: levoFLOXACIN-Levaquin 750MG/D5 150 ML IV SCH (20:58)
[2019-01-18] MEDS: vancomycin/NS 1 GM ADD-VANTAGE 250 ML IV SCH ×4 (00:18→23:33)
[2019-01-18] MEDS: ipratropium/albuterol 3ml nebule NEB SCH ×4 (02:07→20:12)
[2019-01-18 03:00] VITALS: BP 125/85
[2019-01-18 05:26] LABS: BASOPHILS % (AUTO) 0.2 % (0-1); EOSINOPHILS # (AUTO) 0.7 X10'3 (0-0.9); EOSINOPHILS % (AUTO) 8.1 % (0-6); HEMATOCRIT 44.2 % (42.0-52.0); HEMOGLOBIN 15.2 g/dl (14.0-17.9); LYMPHOCYTES # (AUTO) 1.9 X10'3 (1.1-4.8); LYMPHOCYTES % (AUTO) 21.6 % (21-51); MEAN CORPUSCULAR HEMOGLOBIN 30.3 PG (27.0-31.0); MEAN CORPUSCULAR HGB CONC 34.4 g/dL (33.0-36.5); MEAN PLATELET VOLUME 8.4 FL (7.4-10.4); MONOCYTES # (AUTO) 0.9 X10'3 (0-0.9); MONOCYTES % (AUTO) 9.7 % (2-12); NEUTROPHILS # (AUTO) 5.4 X10'3 (1.8-7.7); NEUTROPHILS % (AUTO) 60.4 % (42-75); PLATELET COUNT 249 X10'3 (140-440); RED BLOOD COUNT 5.03 X10'6 (4.70-6.10); RED CELL DISTRIBUTION WIDTH 13.9 % (11.5-14.5)
[2019-01-18 05:31] LABS: PARTIAL THROMBOPLASTIN TIME 28 SECONDS (22-32)
[2019-01-18 05:45] LABS: ALANINE AMINOTRANSFERASE 29 U/L (12-78); ALBUMIN 2.6 G/DL (3.4-5.0); ALBUMIN/GLOBULIN RATIO 0.8 (1.1-1.5); ALKALINE PHOSPHATASE 47 IU/L (46-116); ANION GAP 6 (8-16); ASPARTATE AMINO TRANSFERASE 14 U/L (10-37); BILIRUBIN,TOTAL 0.4 MG/DL (0.1-1.0); BLOOD UREA NITROGEN 20 MG/DL (7-18); CALCIUM 7.9 MG/DL (8.5-10.1); CHLORIDE 108 MMOL/L (99-107); GLUCOSE 93 MG/DL (70-104); PHOSPHORUS 3.2 MG/DL (2.3-4.5); SODIUM 144 MMOL/L (135-145); TOTAL CARBON DIOXIDE 30.4 MMOL/L (24-32); TOTAL PROTEIN 5.8 G/DL (6.4-8.2); eGFR 79 ML/MIN
[2019-01-18 06:00] VITALS: BP 150/100
--- NOTE | 2019-01-18 06:13 | NUR ---
Problems reprioritized. Patient report given, questions answered & plan of care reviewed with Paresh HINOJOSA.
--- NOTE | 2019-01-18 06:16 | NUR ---
Patient in room PCU 3023. I have received report from ASHISH Elizabeth and had the opportunity to ask questions and assume patient care.
--- NOTE | 2019-01-18 06:31 | NUR ---
Called April Adriana about K 3.0, no new orders given already has K replacement protocol in.
[2019-01-18] MEDS: pantoprazole 40mg Tablet.DR PO SCH (07:12)
[2019-01-18] MEDS: potassium Cl 20 mEq SR tablet PO PRN ×3 (07:12→17:22)
[2019-01-18] MEDS: carVEDilol 12.5mg tablet PO SCH ×2 (07:54→21:02)
[2019-01-18] MEDS: amLODIPine 5mg tablet PO SCH (07:54)
[2019-01-18] MEDS: lisinopril 10 MG tablet PO SCH (07:54)
[2019-01-18] MEDS: prednisone 10mg tablet PO SCH (07:55)
[2019-01-18] MEDS: lactobacillus rhamnosus 10,000 MMU CELLS/CAPSULE PO SCH ×2 (07:55→21:01)
[2019-01-18] MEDS: docusate sod 100mg capsule PO SCH ×2 (07:55→21:00)
[2019-01-18] MEDS: apixaban 5mg tablet PO SCH ×2 (07:55→21:01)
[2019-01-18] MEDS: pyridostigmine br 60mg tablet PO SCH ×4 (07:55→21:01)
[2019-01-18] MEDS: potassium Cl 20 mEq SR tablet PO SCH ×2 (09:10→21:02)
--- NOTE | 2019-01-18 09:54 | NUR ---
Initial: Pt admit with acute respiratory failure with hypoxia and hypercapnia and KARISSA with hx myasthenia gravis. Per MD progress notes acute resp fail improving and KARISSA improved. Pt receiving steroids for myasthenia gravis tx and routine K replacement. Pt currently on a regular diet documented with 100% PO intake meeting nutrient needs. LBM 01/17. No edema or wounds. No nutrition diagnosis at this time. Will continue to follow. Recommendations: 1) Continue regular diet 2) Wt per rx Addendum: 01/18/19 at [address] Amended: Links added.
[2019-01-18 11:00] VITALS: BP 131/89
[2019-01-18 15:00] VITALS: BP 115/63
[2019-01-18] MEDS ORDERED: VANCOMYCIN LEVEL IV ONE (15:30)
[2019-01-18 18:00] VITALS: BP 136/85
--- NOTE | 2019-01-18 18:27 | NUR ---
Problems reprioritized. Patient report given, questions answered & plan of care reviewed with ASHISH Randall.
--- NOTE | 2019-01-18 18:48 | NUR ---
Patient in room PCU 3023. I have received report from Quirino HINOJOSA and had the opportunity to ask questions and assume patient care.
[2019-01-18] MEDS: atorvastatin 20mg tablet PO SCH (21:01)
[2019-01-18 22:00] VITALS: BP 144/93
[2019-01-19 02:00] VITALS: BP 134/93
[2019-01-19] MEDS: ipratropium/albuterol 3ml nebule NEB SCH ×4 (02:48→20:18)
[2019-01-19 05:42] LABS: BASOPHILS # (AUTO) 0.1 X10'3 (0-0.2); BASOPHILS % (AUTO) 0.6 % (0-1); EOSINOPHILS # (AUTO) 0.6 X10'3 (0-0.9); EOSINOPHILS % (AUTO) 6.7 % (0-6); HEMATOCRIT 43.1 % (42.0-52.0); HEMOGLOBIN 14.8 g/dl (14.0-17.9); LYMPHOCYTES # (AUTO) 2.3 X10'3 (1.1-4.8); LYMPHOCYTES % (AUTO) 24.6 % (21-51); MEAN CORPUSCULAR HGB CONC 34.3 g/dL (33.0-36.5); MEAN CORPUSCULAR VOLUME 87.6 FL (78-98); MEAN PLATELET VOLUME 8.5 FL (7.4-10.4); MONOCYTES # (AUTO) 0.9 X10'3 (0-0.9); MONOCYTES % (AUTO) 9.5 % (2-12); NEUTROPHILS # (AUTO) 5.4 X10'3 (1.8-7.7); NEUTROPHILS % (AUTO) 58.6 % (42-75); PLATELET COUNT 244 X10'3 (140-440); RED BLOOD COUNT 4.92 X10'6 (4.70-6.10); WHITE BLOOD COUNT 9.2 X10'3 (4.5-11.0)
[2019-01-19 06:00] VITALS: BP 141/89
--- NOTE | 2019-01-19 06:00 | NUR ---
Patient in room PCU 3023. I have received report from Prakash HINOJOSA and had the opportunity to ask questions and assume patient care.
[2019-01-19 06:05] LABS: ALANINE AMINOTRANSFERASE 42 U/L (12-78); ALBUMIN 2.6 G/DL (3.4-5.0); ALBUMIN/GLOBULIN RATIO 0.9 (1.1-1.5); ALKALINE PHOSPHATASE 46 IU/L (46-116); ANION GAP 7 (8-16); ASPARTATE AMINO TRANSFERASE 20 U/L (10-37); BILIRUBIN,TOTAL 0.4 MG/DL (0.1-1.0); BLOOD UREA NITROGEN 17 MG/DL (7-18); BUN/CREATININE RATIO 18.7 (5.4-32.0); CALCIUM 8.1 MG/DL (8.5-10.1); CHLORIDE 110 MMOL/L (99-107); CREATININE 0.91 MG/DL (0.60-1.10); GLUCOSE 98 MG/DL (70-104); MAGNESIUM 2.1 MG/DL (1.5-2.4); PHOSPHORUS 3.7 MG/DL (2.3-4.5); POTASSIUM 3.5 MMOL/L (3.5-5.1); SODIUM 146 MMOL/L (135-145); TOTAL CARBON DIOXIDE 28.7 MMOL/L (24-32); TOTAL PROTEIN 5.6 G/DL (6.4-8.2); eGFR 88 ML/MIN
--- NOTE | 2019-01-19 06:08 | NUR ---
Problems reprioritized. Patient report given, questions answered & plan of care reviewed with Nadia HINOJOSA.
[2019-01-19 06:15] LABS: PARTIAL THROMBOPLASTIN TIME 29 SECONDS (22-32)
[2019-01-19] MEDS: lactobacillus rhamnosus 10,000 MMU CELLS/CAPSULE PO SCH ×2 (07:51→20:36)
[2019-01-19] MEDS: VANCOmycin 1250MG/NS 250ml Bag 250 ML IV SCH ×2 (07:51→17:05)
[2019-01-19] MEDS: prednisone 10mg tablet PO SCH (07:51)
[2019-01-19] MEDS: pyridostigmine br 60mg tablet PO SCH ×4 (07:52→20:37)
[2019-01-19] MEDS: lisinopril 10 MG tablet PO SCH (07:52)
[2019-01-19] MEDS: potassium Cl 20 mEq SR tablet PO SCH ×2 (07:52→20:38)
[2019-01-19] MEDS: pantoprazole 40mg Tablet.DR PO SCH (07:52)
[2019-01-19] MEDS: apixaban 5mg tablet PO SCH ×2 (07:53→20:37)
[2019-01-19] MEDS: carVEDilol 12.5mg tablet PO SCH ×2 (07:53→20:36)
[2019-01-19] MEDS: amLODIPine 5mg tablet PO SCH (07:53)
[2019-01-19] MEDS: docusate sod 100mg capsule PO SCH ×2 (08:00→20:00)
--- NOTE | 2019-01-19 10:11 | NUR ---
Spoke with pt. mother in law. She had a concern regarding diet. I reached out to product assurance engineer José Antonio who states that he will come by some time today to speak with them.
[2019-01-19] MEDS: levoFLOXACIN 750MG TABLET PO SCH (10:58)
[2019-01-19 11:00] VITALS: BP 114/70
--- NOTE | 2019-01-19 11:54 | NUR ---
I have reviewed and agree with all medications administered and interventions performed by [facility] Student Sung Solis Addendum: 01/19/19 at [address] Amended: Links added.
[2019-01-19 15:00] VITALS: BP 121/79
--- NOTE | 2019-01-19 16:13 | NUR ---
F/u: RN reports SO concerns regarding home diet w/ myasthenia gravis. Pt/SO seen by RD and encouraged to follow general healthy diet guidelines per AND. RD encouraged proper portions and varieties of fruits and vegetables in addition to lean meats and healthy fats in moderation. SO concerned about possibility of food intolerance and FODMAP diet; RD encouraged to not try elimination diets unless pt starts to show signs of food intolerance which currently pt is not experiencing. Pt PO 100% meals meeting needs. LBM 01/17. No nutrition concerns at this time. Will continue to monitor. Recommendations: 1) Continue regular diet 2) Wt per rx Addendum: 01/19/19 at [address] Antonio [address] RD Amended: Links added.
[2019-01-19 18:00] VITALS: BP 126/73
--- NOTE | 2019-01-19 18:37 | NUR ---
Problems reprioritized. Patient report given, questions answered & plan of care reviewed with Boby RN and Meghann HINOJOSA.
--- NOTE | 2019-01-19 18:37 | NUR ---
Problems reprioritized. Patient report given, questions answered & plan of care reviewed with Flo HINOJOSA.
--- NOTE | 2019-01-19 18:43 | NUR ---
Patient in room PCU 3023. I have received report from Nadia HINOJOSA and had the opportunity to ask questions and assume patient care.
[2019-01-19] MEDS: atorvastatin 20mg tablet PO SCH (20:37)
[2019-01-19 22:00] VITALS: BP 137/82
[2019-01-20] MEDS: VANCOmycin 1250MG/NS 250ml Bag 250 ML IV SCH ×2 (00:25→08:00)
[2019-01-20 02:00] VITALS: BP 144/85
[2019-01-20] MEDS: ipratropium/albuterol 3ml nebule NEB SCH ×3 (03:29→16:25)
--- NOTE | 2019-01-20 05:56 | NUR ---
I have reviewed Meghann Covarrubias's charting and I agree.
[2019-01-20 06:00] VITALS: BP 147/99
--- NOTE | 2019-01-20 06:00 | NUR ---
Problems reprioritized. Patient report given, questions answered & plan of care reviewed with Nadia HINOJOSA.
--- NOTE | 2019-01-20 06:07 | NUR ---
Problems reprioritized. Patient report given, questions answered & plan of care reviewed with Nadia HINOJOSA.
--- NOTE | 2019-01-20 06:21 | NUR ---
Patient in room PCU 3023. I have received report from Boby RN and Meghann HINOJOSA and had the opportunity to ask questions and assume patient care.
[2019-01-20] MEDS ORDERED: VANCOMYCIN LEVEL IV ONE (07:30)
[2019-01-20 07:39] LABS: BASOPHILS % (AUTO) 0.5 % (0-1); EOSINOPHILS # (AUTO) 0.5 X10'3 (0-0.9); EOSINOPHILS % (AUTO) 5.2 % (0-6); HEMATOCRIT 43.8 % (42.0-52.0); LYMPHOCYTES # (AUTO) 2.2 X10'3 (1.1-4.8); LYMPHOCYTES % (AUTO) 23.7 % (21-51); MEAN CORPUSCULAR HEMOGLOBIN 30.3 PG (27.0-31.0); MEAN CORPUSCULAR HGB CONC 34.2 g/dL (33.0-36.5); MEAN CORPUSCULAR VOLUME 88.5 FL (78-98); MEAN PLATELET VOLUME 7.9 FL (7.4-10.4); MONOCYTES # (AUTO) 0.8 X10'3 (0-0.9); MONOCYTES % (AUTO) 8.9 % (2-12); NEUTROPHILS # (AUTO) 5.8 X10'3 (1.8-7.7); NEUTROPHILS % (AUTO) 61.7 % (42-75); PLATELET COUNT 259 X10'3 (140-440); RED BLOOD COUNT 4.96 X10'6 (4.70-6.10); RED CELL DISTRIBUTION WIDTH 13.8 % (11.5-14.5); WHITE BLOOD COUNT 9.5 X10'3 (4.5-11.0)
[2019-01-20 07:53] LABS: PARTIAL THROMBOPLASTIN TIME 27 SECONDS (22-32)
[2019-01-20 07:56] LABS: ALANINE AMINOTRANSFERASE 54 U/L (12-78); ALBUMIN 2.7 G/DL (3.4-5.0); ALBUMIN/GLOBULIN RATIO 0.8 (1.1-1.5); ALKALINE PHOSPHATASE 50 IU/L (46-116); ANION GAP 6 (8-16); ASPARTATE AMINO TRANSFERASE 21 U/L (10-37); BILIRUBIN,TOTAL 0.6 MG/DL (0.1-1.0); BLOOD UREA NITROGEN 16 MG/DL (7-18); BUN/CREATININE RATIO 15.4 (5.4-32.0); CALCIUM 8.1 MG/DL (8.5-10.1); CHLORIDE 107 MMOL/L (99-107); CREATININE 1.04 MG/DL (0.60-1.10); GLUCOSE 89 MG/DL (70-104); MAGNESIUM 2.2 MG/DL (1.5-2.4); PHOSPHORUS 3.4 MG/DL (2.3-4.5); POTASSIUM 3.3 MMOL/L (3.5-5.1); SODIUM 146 MMOL/L (135-145); TOTAL CARBON DIOXIDE 32.8 MMOL/L (24-32); TOTAL PROTEIN 5.9 G/DL (6.4-8.2); eGFR 76 ML/MIN
[2019-01-20] MEDS: docusate sod 100mg capsule PO SCH (08:00)
[2019-01-20] MEDS: apixaban 5mg tablet PO SCH (08:03)
[2019-01-20] MEDS: carVEDilol 12.5mg tablet PO SCH (08:03)
[2019-01-20] MEDS: potassium Cl 20 mEq SR tablet PO SCH (08:03)
[2019-01-20] MEDS: pantoprazole 40mg Tablet.DR PO SCH (08:03)
[2019-01-20] MEDS: pyridostigmine br 60mg tablet PO SCH ×3 (08:03→17:09)
[2019-01-20] MEDS: prednisone 10mg tablet PO SCH (08:03)
[2019-01-20] MEDS: lactobacillus rhamnosus 10,000 MMU CELLS/CAPSULE PO SCH (08:03)
[2019-01-20] MEDS: amLODIPine 5mg tablet PO SCH (08:04)
[2019-01-20] MEDS: lisinopril 10 MG tablet PO SCH (08:06)
[2019-01-20] MEDS: potassium Cl 20 mEq SR tablet PO PRN ×3 (08:12→17:09)
[2019-01-20] MEDS ORDERED: vancomycin/NS 1 GM ADD-VANTAGE 250 ML IV SCH (09:00)
[2019-01-20 11:00] VITALS: BP 124/73
[2019-01-20] MEDS: levoFLOXACIN 750MG TABLET PO SCH (11:10)
[2019-01-20 15:00] VITALS: BP 139/87
[2019-01-20] MEDS ORDERED: LEVO500T2 PO (15:02)
--- NOTE | 2019-01-20 16:43 | NUR ---
I have reviewed and agree with all medications administered and interventions performed by [facility] Student Sung Solis Addendum: 01/20/19 at [address]4 by [address] RT Amended: Links added.
--- NOTE | 2019-01-20 17:15 | NUR ---
Stable for discharge home per MD orders. Discharge instructions and written prescription reviewed with and given to patient. Patient will call to make own follow up appointments. Telemetry monitoring and PIV discontinued; cannula intact. Belongings packed and sent with patient. Transferred to private vehicle via wheelchair accompanied by .
[2019-01-21] MEDS ORDERED: VANCOMYCIN LEVEL IV ONE (08:30)
== END 2019-01-20 17:29 | disposition home or self-care (01) | DRG 56 ==
LOC: ER 20:35 → ICU 2S 01-14 00:54 → PCU 3S 01-17 16:41
PROC: 5A09357 Assistance with Respiratory Ventilation, Less than 24 Consecutive Hours, Continuous Positive Airway Pressure (ICD-10-PCS; principal; 2019-01-13)
DX: G70.01 Myasthenia gravis with (acute) exacerbation (principal); J96.02 Acute respiratory failure with hypercapnia; J96.01 Acute respiratory failure with hypoxia; N17.9 Acute kidney failure, unspecified; I13.0 Hypertensive heart and chronic kidney disease with heart failure and stage 1 through stage 4 chronic kidney disease, or unspecified chronic kidney disease; E78.00 Pure hypercholesterolemia, unspecified; J40 Bronchitis, not specified as acute or chronic; E78.5 Hyperlipidemia, unspecified; R00.0 Tachycardia, unspecified; R19.7 Diarrhea, unspecified; I48.0 Paroxysmal atrial fibrillation; I50.9 Heart failure, unspecified; N18.9 Chronic kidney disease, unspecified; Z79.01 Long term (current) use of anticoagulants; Z99.81 Dependence on supplemental oxygen; Z79.899 Other long term (current) drug therapy; Z88.8 Allergy status to other drugs, medicaments and biological substances
CPT/HCPCS: 36415; 36600; 71045; 80053; 80202; 80305; 81001; 82803; 83605; 83735; 83880; 84100; 84132; 84145; 84484; 85018; 85025; 85610; 85730; 87040; 87070; 87077; 87081; 87186; 87502; 87503; 93005; 94150; 94640; 94660; 94667; 94668; 94760; 96365; 96366; 96375; 97110; 97116; 97161; 97530; 99291; C9113; G0378; J0360; J1956; J2270; J2930; J3370; J3480; J3490; J7512